=== PATIENT | female | born 1970 | race Caucasian/White ===

== ENCOUNTER 2020-10-14 18:02 | Inpatient (IN) | payer MEDICARE, BC ==
[~2020-10-14] VITALS: Ht 172.7 cm; Wt 85.8 kg
[2020-10-14 19:12] LABS: Basophils # (auto) 0 10 ^3/uL (0-0.2); Basophils % (auto) 0.6 % (0.0-2.0); Eosinophils # (auto) 0.1 10 ^3/uL (0-0.8); Eosinophils % (auto) 1.1 % (0.0-7.0); Hematocrit 36.4 % (36.0-46.0); Hemoglobin 12.4 g/dL (12.2-16.2); Lymphocytes % (auto) 38.2 % (10.0-50.0); Mean Corpuscular Hemoglobin 31.1 pg (28.0-32.0); Mean Corpuscular Volume 91.4 fL (80.0-100.0); Monocytes # (auto) 0.5 10 ^3/uL (0-1.3); Monocytes % (auto) 6.3 % (0.0-12.0); Neutrophils # (auto) 4.2 10 ^3/uL (1.6-8.6); Neutrophils % (auto) 53.8 % (37.0-80.0); Nucleated Red Blood Cells % 0.1 %; Platelet Count (auto) 253 10^3/uL (140-450); Red Blood Cells 3.98 10^6/uL (4.0-5.20); Red Cell Distribution Width 12.8 % (11.8-14.3); White Blood Cell 7.9 10^3/uL (4.4-10.8)
[2020-10-14 19:28] LABS: Alanine Aminotransferase 40 U/L (13-56); Albumin 4.3 g/dL (3.4-5.0); Anion Gap 9 (5-15); Aspartate Aminotransferase 15 U/L (15-37); Blood Urea Nitrogen 18 mg/dL (7-18); Calcium 8.8 mg/dL (8.5-10.1); Carbon Dioxide 28 mmol/L (21-32); Chloride 102 mmol/L (98-107); GFR African American 75 mL/min; GFR Non-African American 62 mL/min; Glucose 240 mg/dL (74-106); Magnesium 2.1 mg/dL (1.6-2.6); Potassium 3.5 mmol/L (3.5-5.1); Sodium 139 mmol/L (136-145)
[2020-10-14 19:34] LABS: Alkaline Phosphatase 92 U/L (45-117); Bilirubin, Total 0.3 mg/dL (0.2-1.0); Total Protein 8.2 g/dL (6.4-8.2)
[2020-10-14 19:43] LABS: INR 1.03 (0.9-1.15); Partial Thromboplastin Time 28.4 sec (23.0-31.2)
[2020-10-14] MEDS ORDERED: FUROSEMIDE 20 MG/2 ML VIAL IV ONE (21:15)
[2020-10-15] MEDS ORDERED: ONDANSETRON HCL 4 MG/2 ML VIAL IV PRN
[2020-10-15] MEDS ORDERED: NITROGLYCERIN 0.4 MG SL TAB SL PRN
[2020-10-15] MEDS ORDERED: DOCUSATE SOD 100 MG CAP PO PRN
[2020-10-15] MEDS ORDERED: DEXTROSE (50%) 50ML SYRG IV PRN
[2020-10-15 02:20] VITALS: BP 121/66
[2020-10-15] MEDS ORDERED: SPIR25TA PO (04:07)
[2020-10-15] MEDS ORDERED: ASPI325T4 PO (04:07)
[2020-10-15] MEDS ORDERED: GLIP10TA9 PO (04:07)
[2020-10-15] MEDS ORDERED: LEVO112T4 PO (04:07)
[2020-10-15] MEDS ORDERED: DIGO0.12 PO (04:07)
[2020-10-15] MEDS ORDERED: IVAB1TAB2 PO (04:07)
[2020-10-15] MEDS ORDERED: ZOLP10TA PO (04:07)
[2020-10-15] MEDS ORDERED: EMPA1TAB PO (04:07)
[2020-10-15] MEDS ORDERED: SACU1TAB7 PO (04:07)
[2020-10-15] MEDS ORDERED: ASPI-543 PO (04:07)
[2020-10-15] MEDS ORDERED: POTA-220 PO (04:07)
[2020-10-15] MEDS ORDERED: METF-371 PO (04:07)
[2020-10-15] MEDS ORDERED: CARV6.2551 PO (04:07)
[2020-10-15] MEDS ORDERED: MAGNTAB16 PO (04:07)
[2020-10-15] MEDS ORDERED: FURO1TAB31 PO (04:07)
[2020-10-15] MEDS ORDERED: PRAV20TA3 PO (04:07)
[2020-10-15 05:00] VITALS: BP 115/68
[2020-10-15 05:19] LABS: Basophils # (auto) 0 10 ^3/uL (0-0.2); Basophils % (auto) 0.5 % (0.0-2.0); Eosinophils # (auto) 0.1 10 ^3/uL (0-0.8); Eosinophils % (auto) 0.8 % (0.0-7.0); Hematocrit 35.8 % (36.0-46.0); Hemoglobin 12.3 g/dL (12.2-16.2); Lymphocytes # (auto) 3.4 10 ^3/uL (0.4-5.4); Lymphocytes % (auto) 40.6 % (10.0-50.0); Mean Corpuscular Hemoglobin 31.1 pg (28.0-32.0); Mean Corpuscular Hgb Conc. 34.4 g/dL (32.0-36.0); Mean Corpuscular Volume 90.5 fL (80.0-100.0); Monocytes # (auto) 0.7 10 ^3/uL (0-1.3); Monocytes % (auto) 8.1 % (0.0-12.0); Neutrophils # (auto) 4.2 10 ^3/uL (1.6-8.6); Platelet Count (auto) 252 10^3/uL (140-450); Red Blood Cells 3.96 10^6/uL (4.0-5.20); Red Cell Distribution Width 12.6 % (11.8-14.3); White Blood Cell 8.4 10^3/uL (4.4-10.8)
[2020-10-15 05:30] LABS: Calcium 8.9 mg/dL (8.5-10.1); Potassium 3.2 mmol/L (3.5-5.1)
[2020-10-15 05:34] LABS: Bilirubin, Total 0.3 mg/dL (0.2-1.0)
[2020-10-15 05:50] LABS: Urine Bacteria NONE SEEN /hpf (None Seen); Urine Blood Negative /uL (Negative); Urine Specific Gravity 1.017 (1.001-1.035); Urine WBC 1 /hpf (0 - 5)
[2020-10-15] MEDS ORDERED: POTASSIUM CHL 20 Meq TABLET PO ONE (06:15)
[2020-10-15] MEDS: SODIUM CHLOR 0.9% PF (SALINE LOCK) 10ML VIAL/SYR IV SCH ×3 (06:57→22:31)
[2020-10-15] MEDS: FUROSEMIDE 20 MG/2 ML VIAL IV SCH ×2 (06:57→17:44)
[2020-10-15] MEDS: LEVOTHYROXINE SODIUM 112 MCG TAB PO SCH (06:57)
[2020-10-15] MEDS: InsuLIN REG 1unit/0.01ml Soln (100units/ml) SC SCH ×3 (06:58→17:00)
[2020-10-15] MEDS: ACCU-CHEK COMFORT CURVE STRIP VI SCH ×4 (06:58→22:32)
[2020-10-15 09:00] VITALS: BP 132/82
[2020-10-15] MEDS ORDERED: PNEUMOCOCCAL VACC POLYS 25 MCG/0.5 ML VIAL IM ONE (10:00)
[2020-10-15] MEDS: FAMOTIDINE 20 MG TAB PO SCH ×2 (10:19→22:32)
[2020-10-15] MEDS: CARVEDILOL 3.125 MG TAB PO SCH ×2 (10:19→22:31)
[2020-10-15] MEDS: MULTIPLE VITAMIN TAB PO SCH (10:20)
[2020-10-15] MEDS: ASPirin 81 mg TAB PO SCH (10:20)
[2020-10-15] MEDS: POTASSIUM CHL 20 Meq TABLET PO SCH (10:20)
[2020-10-15] MEDS: ZINC SULFATE 220mg CAP or TAB PO SCH (10:21)
[2020-10-15] MEDS: ENOXAPARIN SOD 40 MG/0.4 ML SYRINGE SC SCH (10:21)
[2020-10-15] MEDS: ASCORBIC ACID 500 MG TAB PO SCH ×2 (10:21→22:32)
[2020-10-15] MEDS ORDERED: DIGOXIN 0.125 MG TAB PO ONE (12:15)
[2020-10-15] MEDS ORDERED: ZOLPIDEM TARTRATE 5 MG TAB PO PRN ×2 (12:15)
[2020-10-15] MEDS ORDERED: SPIRONOLACTONE 25 MG TAB PO ONE (12:15)
[2020-10-15 13:00] VITALS: BP 116/74
[2020-10-15] MEDS ORDERED: ACETAMINOPHEN 325 MG TAB PO PRN (16:00)
[2020-10-15] MEDS: IBUPROFEN 400 MG TAB PO PRN ×2 (16:25→22:33)
[2020-10-15 17:00] VITALS: BP 132/91
[2020-10-15] MEDS ORDERED: HYDROcodone-ACET 5/325MG TAB PO PRN (17:30)
[2020-10-15] MEDS: metFORMIN HYDROCHLORIDE 850 MG TAB PO SCH (17:45)
[2020-10-15] MEDS: glipiZIDE 5 MG TAB PO SCH (17:45)
[2020-10-15] MEDS: ACETAMINOPHEN 500 MG TAB PO PRN (18:04)
[2020-10-15 21:47] VITALS: BP 125/82
[2020-10-15] MEDS: IVABRADINE 5 MG TAB PO SCH (22:00)
[2020-10-15] MEDS ORDERED: InsuLIN REG 1unit/0.01ml Soln (100units/ml) SC SCH (22:00)
[2020-10-15] MEDS: SACUBITRIL-VALSARTAN 24mg/26mg TAB PO SCH (22:32)
[2020-10-16 04:33] VITALS: BP 102/58
[2020-10-16] MEDS: FUROSEMIDE 20 MG/2 ML VIAL IV SCH (06:49)
[2020-10-16] MEDS: LEVOTHYROXINE SODIUM 112 MCG TAB PO SCH (06:49)
[2020-10-16] MEDS: SODIUM CHLOR 0.9% PF (SALINE LOCK) 10ML VIAL/SYR IV SCH (06:49)
[2020-10-16] MEDS: ACCU-CHEK COMFORT CURVE STRIP VI SCH ×2 (06:49→11:55)
[2020-10-16] MEDS: InsuLIN REG 1unit/0.01ml Soln (100units/ml) SC SCH ×2 (06:50→11:30)
[2020-10-16 06:59] LABS: Basophils # (auto) 0 10 ^3/uL (0-0.2); Basophils % (auto) 0.6 % (0.0-2.0); Eosinophils # (auto) 0.1 10 ^3/uL (0-0.8); Eosinophils % (auto) 1.6 % (0.0-7.0); Hematocrit 38.4 % (36.0-46.0); Hemoglobin 13.3 g/dL (12.2-16.2); Lymphocytes # (auto) 3.5 10 ^3/uL (0.4-5.4); Mean Corpuscular Hemoglobin 31.3 pg (28.0-32.0); Mean Corpuscular Hgb Conc. 34.7 g/dL (32.0-36.0); Mean Corpuscular Volume 90.3 fL (80.0-100.0); Monocytes # (auto) 0.6 10 ^3/uL (0-1.3); Monocytes % (auto) 7.7 % (0.0-12.0); Neutrophils # (auto) 3.5 10 ^3/uL (1.6-8.6); Neutrophils % (auto) 45.1 % (37.0-80.0); Platelet Count (auto) 267 10^3/uL (140-450); Red Blood Cells 4.25 10^6/uL (4.0-5.20); Red Cell Distribution Width 12.2 % (11.8-14.3); White Blood Cell 7.7 10^3/uL (4.4-10.8)
[2020-10-16 07:14] LABS: Chloride 104 mmol/L (98-107); Potassium 3.6 mmol/L (3.5-5.1); Sodium 140 mmol/L (136-145)
[2020-10-16 07:28] LABS: Anion Gap 8 (5-15); BUN/Creatinine Ratio 32.1; Blood Urea Nitrogen 27 mg/dL (7-18); Calcium 8.9 mg/dL (8.5-10.1); Carbon Dioxide 28 mmol/L (21-32); GFR African American 92 mL/min; GFR Non-African American 76 mL/min; Glucose 82 mg/dL (74-106)
[2020-10-16] MEDS: glipiZIDE 5 MG TAB PO SCH (07:38)
[2020-10-16] MEDS: metFORMIN HYDROCHLORIDE 850 MG TAB PO SCH (07:38)
[2020-10-16 08:00] VITALS: BP 111/43
[2020-10-16] MEDS: ASPirin 81 mg TAB PO SCH (09:27)
[2020-10-16] MEDS: CARVEDILOL 3.125 MG TAB PO SCH (09:31)
[2020-10-16] MEDS: ZINC SULFATE 220mg CAP or TAB PO SCH (09:31)
[2020-10-16] MEDS: IVABRADINE 5 MG TAB PO SCH (09:32)
[2020-10-16] MEDS: MULTIPLE VITAMIN TAB PO SCH (09:32)
[2020-10-16] MEDS: ASCORBIC ACID 500 MG TAB PO SCH (09:33)
[2020-10-16] MEDS: SACUBITRIL-VALSARTAN 24mg/26mg TAB PO SCH (09:33)
[2020-10-16] MEDS: FAMOTIDINE 20 MG TAB PO SCH (09:33)
[2020-10-16] MEDS: POTASSIUM CHL 20 Meq TABLET PO SCH (09:33)
[2020-10-16] MEDS: ENOXAPARIN SOD 40 MG/0.4 ML SYRINGE SC SCH (09:33)
[2020-10-16] MEDS: ACETAMINOPHEN 500 MG TAB PO PRN (09:34)
[2020-10-16] MEDS ORDERED: SPIRONOLACTONE 25 MG TAB PO SCH (10:00)
[2020-10-16 12:00] VITALS: BP 105/70
[2020-10-16] MEDS ORDERED: PNEUMOCOCCAL VACC POLYS 25 MCG/0.5 ML VIAL IM ONE (12:00)
[2020-10-16 12:12] VITALS: BP 105/70
== END 2020-10-16 13:22 | disposition home or self-care (01) | DRG 308 ==
LOC: ER 18:02 → EDBD 18:02 → TELE 10-15 00:12 → TELE-WESTW 10-15 02:09
PROVIDERS: ADMIT Nurse Practitioner Family; ATTEND Nurse Practitioner Family
PROC: 4B02XSZ Measurement of Cardiac Pacemaker, External Approach (ICD-10-PCS; principal; 2020-10-15)
DX: I49.01 Ventricular fibrillation (principal); N17.0 Acute kidney failure with tubular necrosis; I50.42 Chronic combined systolic (congestive) and diastolic (congestive) heart failure; I49.3 Ventricular premature depolarization; Z88.8 Allergy status to other drugs, medicaments and biological substances; Z20.822 Contact with and (suspected) exposure to COVID-19; E11.22 Type 2 diabetes mellitus with diabetic chronic kidney disease; E11.65 Type 2 diabetes mellitus with hyperglycemia; E87.6 Hypokalemia; N18.9 Chronic kidney disease, unspecified; Z76.82 Awaiting organ transplant status; Z95.0 Presence of cardiac pacemaker; Z90.49 Acquired absence of other specified parts of digestive tract
CPT/HCPCS: 36415; 71045; 80048; 80053; 81001; 82962; 83036; 83735; 83880; 84443; 84484; 85025; 85610; 85730; 86850; 86900; 86901; 87426; 93306; 96374; G0378; J1815

== ENCOUNTER 2023-03-20 16:28 | Inpatient (IN) | payer MEDICARE, BC ==
[~2023-03-20] VITALS: Ht 172.7 cm; Wt 82.4 kg
[~2023-03-20 16:28] MED LIST: ASPI-543 PO; CARV6.2551 PO; DIGO0.12 PO; EMPA1TAB PO; FURO1TAB31 PO; GLIP10TA9 PO; IVAB1TAB2 PO; LEVO112T4 PO; MAGNTAB16 PO; METF-371 PO; POTA-220 PO; PRAV20TA3 PO; SACU1TAB7 PO; SPIR25TA PO; ZOLP10TA PO
[2023-03-20 17:28] LABS: Basophils # (auto) 0 10 ^3/uL (0-0.2); Basophils % (auto) 0.3 % (0.0-2.0); Eosinophils # (auto) 0 10 ^3/uL (0-0.8); Hematocrit 36.4 % (36.0-46.0); Hemoglobin 12.1 g/dL (12.2-16.2); Lymphocytes # (auto) 1.2 10 ^3/uL (0.4-5.4); Lymphocytes % (auto) 8.8 % (10.0-50.0); Mean Corpuscular Hemoglobin 29.8 pg (28.0-32.0); Mean Corpuscular Hgb Conc. 33.3 g/dL (32.0-36.0); Mean Corpuscular Volume 89.8 fL (80.0-100.0); Monocytes % (auto) 7.7 % (0.0-12.0); Neutrophils % (auto) 83.2 % (37.0-80.0); Red Blood Cells 4.06 10^6/uL (4.0-5.20); Red Cell Distribution Width 13.8 % (11.8-14.3); White Blood Cell 13.3 10^3/uL (4.4-10.8)
[2023-03-20 17:32] VITALS: O2SAT 97
[2023-03-20 17:47] LABS: Albumin 4.3 g/dL (3.4-5.0); Calcium 9.1 mg/dL (8.5-10.1); Magnesium 1.7 mg/dL (1.6-2.6)
[2023-03-20 17:52] LABS: Bilirubin, Total 0.5 mg/dL (0.2-1.0); Total Protein 8.4 g/dL (6.4-8.2)
[2023-03-20 17:57] LABS: BUN/Creatinine Ratio 25.2 (10.0-20.0)
[2023-03-20] MEDS ORDERED: ACETAMINOPHEN 325 MG TAB PO ONE (18:45)
[2023-03-20 19:02] LABS: Urine Bacteria FEW /hpf (None Seen); Urine Blood Negative /uL (Negative); Urine Clarity Clear (Clear); Urine Color Colorless (Yellow); Urine Hyaline Cast FEW /lpf (0 - 2); Urine Protein, UAD Negative (Negative); Urine Specific Gravity 1.006 (1.001-1.035); Urine Urobilinogen Normal (Negative); Urine WBC <1 /hpf (0 - 5)
[2023-03-20] MEDS ORDERED: cefTRIAXone 1GM/50ML D5W 50 ML IV ONE (19:15)
[2023-03-20 19:35] VITALS: PULSE 68; RESP 14; O2SAT 94
[2023-03-20] MEDS ORDERED: MORPHINE SULFATE INJ 2 MG/ml SYRG IV PRN (20:45)
[2023-03-20] MEDS ORDERED: MORPHINE SULFATE 4 MG/ML SYR/VIAL IV ONE (20:45)
[2023-03-20] MEDS ORDERED: ONDANSETRON HCL 4 MG/2 ML VIAL IV ONE (20:45)
[2023-03-20] MEDS ORDERED: NITROGLYCERIN 0.4 MG SL TAB SL PRN (20:45)
[2023-03-20] MEDS ORDERED: ALBUTEROL SULF 2.5 MG/0.5ML(0.5%) NEB SOLN NEB PRN (21:00)
[2023-03-20] MEDS ORDERED: DEXTROSE (50%) 50ML SYRG IV PRN (21:00)
[2023-03-20] MEDS: CARVEDILOL 3.125 MG TAB PO SCH (21:49)
[2023-03-20] MEDS: ATORVASTATIN 20 MG TAB PO SCH (21:49)
[2023-03-20] MEDS: ACCU-CHEK COMFORT CURVE STRIP VI SCH (21:49)
[2023-03-20] MEDS: InsuLIN REG 1unit/0.01ml Soln (100units/ml) SC SCH (21:50)
[2023-03-20] MEDS: SACUBITRIL-VALSARTAN 24mg/26mg TAB PO SCH (21:50)
[2023-03-20 22:15] LABS: BUN/Creatinine Ratio 24.3 (10.0-20.0); Calcium 8.4 mg/dL (8.5-10.1); Potassium 3.5 mmol/L (3.5-5.1)
[2023-03-20 23:01] VITALS: BP 103/144; PULSE 65; RESP 20; O2SAT 94
[2023-03-21] VITALS (10 sets, daily range): BP systolic 92–104; BP diastolic 44–50; PULSE 59–69; RESP 15–20; TEMP 97.9–98.8; O2SAT 90–98
[2023-03-21] MEDS: ACETAMINOPHEN 325 MG TAB PO PRN ×4 (01:40→21:00)
[2023-03-21] MEDS: TEMAZEPAM 15 MG CAP PO PRN ×2 (03:12→22:10)
[2023-03-21 04:58] LABS: Basophils # (auto) 0 10 ^3/uL (0-0.2); Basophils % (auto) 0.2 % (0.0-2.0); Eosinophils # (auto) 0 10 ^3/uL (0-0.8); Hematocrit 32.3 % (36.0-46.0); Hemoglobin 10.8 g/dL (12.2-16.2); Lymphocytes # (auto) 2.4 10 ^3/uL (0.4-5.4); Lymphocytes % (auto) 15.7 % (10.0-50.0); Mean Corpuscular Hemoglobin 29.7 pg (28.0-32.0); Mean Corpuscular Hgb Conc. 33.4 g/dL (32.0-36.0); Mean Corpuscular Volume 89.1 fL (80.0-100.0); Monocytes # (auto) 1.3 10 ^3/uL (0-1.3); Monocytes % (auto) 8.5 % (0.0-12.0); Neutrophils # (auto) 11.4 10 ^3/uL (1.6-8.6); Neutrophils % (auto) 75.6 % (37.0-80.0); Red Blood Cells 3.62 10^6/uL (4.0-5.20); Red Cell Distribution Width 13.9 % (11.8-14.3); White Blood Cell 15.1 10^3/uL (4.4-10.8)
[2023-03-21] MEDS ORDERED: FUROSEMIDE 40 MG/4 ML VIAL IV SCH (06:00)
[2023-03-21] MEDS: ACCU-CHEK COMFORT CURVE STRIP VI SCH ×4 (06:22→22:00)
[2023-03-21] MEDS: InsuLIN REG 1unit/0.01ml Soln (100units/ml) SC SCH ×4 (06:22→21:39)
[2023-03-21] MEDS: LEVOTHYROXINE SODIUM 50 MCG TAB PO SCH (06:42)
[2023-03-21] MEDS: ENOXAPARIN SOD 40 MG/0.4 ML SYRINGE SC SCH (09:48)
[2023-03-21] MEDS: PANTOPRAZOLE 40 MG TAB PO SCH (09:48)
[2023-03-21] MEDS ORDERED: AZITHROMYCIN 500MG/ 250ML 250 ML IV SCH (10:00)
[2023-03-21] MEDS: SACUBITRIL-VALSARTAN 24mg/26mg TAB PO SCH ×2 (10:00→21:35)
[2023-03-21] MEDS: DIGOXIN 0.125 MG TAB PO SCH (10:00)
[2023-03-21] MEDS: CARVEDILOL 3.125 MG TAB PO SCH ×2 (10:00→21:35)
[2023-03-21] MEDS: AMIODARONE HCL 200 MG TAB PO SCH (10:04)
[2023-03-21] MEDS: SPIRONOLACTONE 25 MG TAB PO SCH (10:10)
[2023-03-21] MEDS ORDERED: MORPHINE SULFATE 4 MG/ML SYR/VIAL IV PRN (10:15)
[2023-03-21] MEDS ORDERED: POTASSIUM EFFERVESENT TAB 25 MEQ PO ONE (10:15)
[2023-03-21 11:04] LABS: Albumin 3.5 g/dL (3.4-5.0); Calcium 8.4 mg/dL (8.5-10.1); Magnesium 2.2 mg/dL (1.6-2.6); Potassium 3.3 mmol/L (3.5-5.1)
[2023-03-21 11:09] LABS: BUN/Creatinine Ratio 26.9 (10.0-20.0); Bilirubin, Total 0.4 mg/dL (0.2-1.0); Total Protein 7.7 g/dL (6.4-8.2)
[2023-03-21 11:57] LABS: Hepatitis B Surface Antigen Negative (Negative); Hepatitis C Antibody Negative (Negative)
[2023-03-21] MEDS ORDERED: cefTRIAXone 1GM/50ML D5W 50 ML IV ONE (12:45)
[2023-03-21] MEDS: BUDESONIDE (INHALATION) 0.5 MG/2 ML NEB NEB SCH ×2 (14:36→19:42)
[2023-03-21] MEDS ORDERED: ACETAMINOPHEN 500 MG TAB PO ONE (16:15)
[2023-03-21] MEDS: guaiFENesin-DM 100/10mg/5ml SYR PO PRN (16:35)
[2023-03-21 17:59] LABS: COVID19 ANTIGEN SOFIA FIA NEGATIVE (NEGATIVE); Rapid Influenza A Negative (Negative); Rapid Influenza B Negative (Negative)
[2023-03-21] MEDS: ALBUTEROL SULF 2.5 MG/0.5ML(0.5%) NEB SOLN NEB SCH (19:42)
[2023-03-21] MEDS: IPRATROPIUM BROM 0.5 MG/2.5ML INH SOL NEB SCH (19:42)
[2023-03-21] MEDS: DOXYCYCLINE 100 MG TAB/CAP PO SCH (21:35)
[2023-03-21] MEDS: ATORVASTATIN 20 MG TAB PO SCH (21:36)
[2023-03-22] VITALS (8 sets, daily range): BP systolic 103–123; BP diastolic 49–78; PULSE 65–80; RESP 16–19; TEMP 36.5; O2SAT 92–94
[2023-03-22] MEDS: MORPHINE SULFATE INJ 2 MG/ml SYRG IV PRN ×2 (00:35→05:09)
[2023-03-22] MEDS: ACETAMINOPHEN 325 MG TAB PO PRN (04:31)
[2023-03-22 05:50] LABS: Basophils # (auto) 0 10 ^3/uL (0-0.2); Basophils % (auto) 0.2 % (0.0-2.0); Eosinophils # (auto) 0 10 ^3/uL (0-0.8); Eosinophils % (auto) 0.4 % (0.0-7.0); Hematocrit 35.4 % (36.0-46.0); Lymphocytes # (auto) 3.1 10 ^3/uL (0.4-5.4); Lymphocytes % (auto) 25.4 % (10.0-50.0); Mean Corpuscular Hemoglobin 30.4 pg (28.0-32.0); Mean Corpuscular Hgb Conc. 33.9 g/dL (32.0-36.0); Mean Corpuscular Volume 89.5 fL (80.0-100.0); Monocytes # (auto) 0.9 10 ^3/uL (0-1.3); Monocytes % (auto) 7.4 % (0.0-12.0); Neutrophils % (auto) 66.6 % (37.0-80.0); Red Blood Cells 3.95 10^6/uL (4.0-5.20); Red Cell Distribution Width 13.8 % (11.8-14.3); White Blood Cell 12.1 10^3/uL (4.4-10.8)
[2023-03-22 06:13] LABS: Potassium 3.3 mmol/L (3.5-5.1)
[2023-03-22 06:19] LABS: Albumin 3.8 g/dL (3.4-5.0); BUN/Creatinine Ratio 23.7 (10.0-20.0); Calcium 8.6 mg/dL (8.5-10.1); Magnesium 2.3 mg/dL (1.6-2.6)
[2023-03-22 06:21] LABS: Bilirubin, Total 0.3 mg/dL (0.2-1.0); Total Protein 8.6 g/dL (6.4-8.2)
[2023-03-22] MEDS: ALBUTEROL SULF 2.5 MG/0.5ML(0.5%) NEB SOLN NEB SCH ×2 (06:33→12:00)
[2023-03-22] MEDS: IPRATROPIUM BROM 0.5 MG/2.5ML INH SOL NEB SCH ×2 (06:33→12:00)
[2023-03-22] MEDS: FUROSEMIDE 40 MG/4 ML VIAL IV SCH ×2 (06:42→07:29)
[2023-03-22] MEDS: InsuLIN REG 1unit/0.01ml Soln (100units/ml) SC SCH ×5 (06:43→21:43)
[2023-03-22] MEDS: ACCU-CHEK COMFORT CURVE STRIP VI SCH ×4 (07:00→22:00)
[2023-03-22] MEDS: LEVOTHYROXINE SODIUM 50 MCG TAB PO SCH (07:28)
[2023-03-22] MEDS ORDERED: POTASSIUM EFFERVESENT TAB 25 MEQ PO ONE ×2 (07:30)
[2023-03-22] MEDS ORDERED: LACTULOSE 20Gm/30ML SOLN PO ONE (08:30)
[2023-03-22] MEDS: cefTRIAXone 1GM/50ML D5W 50 ML IV SCH (09:24)
[2023-03-22] MEDS: DIGOXIN 0.125 MG TAB PO SCH (09:25)
[2023-03-22] MEDS: ENOXAPARIN SOD 40 MG/0.4 ML SYRINGE SC SCH (09:25)
[2023-03-22] MEDS: SPIRONOLACTONE 25 MG TAB PO SCH (09:26)
[2023-03-22] MEDS: HYDROcodone-ACET 5/325MG TAB PO PRN ×2 (09:26→18:33)
[2023-03-22] MEDS: PANTOPRAZOLE 40 MG TAB PO SCH (09:26)
[2023-03-22] MEDS: DOXYCYCLINE 100 MG TAB/CAP PO SCH ×2 (09:26→21:48)
[2023-03-22] MEDS: CARVEDILOL 3.125 MG TAB PO SCH ×2 (09:27→21:53)
[2023-03-22] MEDS: AMIODARONE HCL 200 MG TAB PO SCH (09:27)
[2023-03-22] MEDS: SACUBITRIL-VALSARTAN 24mg/26mg TAB PO SCH ×2 (09:28→21:54)
[2023-03-22] MEDS: BUDESONIDE (INHALATION) 0.5 MG/2 ML NEB NEB SCH (10:00)
[2023-03-22] MEDS: ONDANSETRON HCL 4 MG/2 ML VIAL IV PRN (12:22)
[2023-03-22] MEDS ORDERED: KETOROLAC TROMETH 30 MG/ML 1ML VIAL IV ONE (13:15)
[2023-03-22] MEDS ORDERED: POTASSIUM CHL 20MEQ/100ML 100 ML IV ONE (15:00)
[2023-03-22] MEDS: ATORVASTATIN 20 MG TAB PO SCH (21:48)
[2023-03-22] MEDS: TEMAZEPAM 15 MG CAP PO PRN (21:48)
[2023-03-22] MEDS: IVABRADINE 5 MG TAB PO SCH (21:54)
[2023-03-23] VITALS (7 sets, daily range): BP systolic 89–132; BP diastolic 50–66; PULSE 60–80; RESP 17–18; TEMP 36.9; O2SAT 93–96
[2023-03-23 05:36] LABS: Basophils # (auto) 0 10 ^3/uL (0-0.2); Basophils % (auto) 0.6 % (0.0-2.0); Eosinophils # (auto) 0.1 10 ^3/uL (0-0.8); Eosinophils % (auto) 1.8 % (0.0-7.0); Hematocrit 33.5 % (36.0-46.0); Hemoglobin 11.3 g/dL (12.2-16.2); Lymphocytes # (auto) 1.5 10 ^3/uL (0.4-5.4); Lymphocytes % (auto) 23.8 % (10.0-50.0); Mean Corpuscular Hemoglobin 30.2 pg (28.0-32.0); Mean Corpuscular Hgb Conc. 33.9 g/dL (32.0-36.0); Mean Corpuscular Volume 89.1 fL (80.0-100.0); Monocytes # (auto) 0.5 10 ^3/uL (0-1.3); Monocytes % (auto) 7.1 % (0.0-12.0); Neutrophils # (auto) 4.2 10 ^3/uL (1.6-8.6); Neutrophils % (auto) 66.7 % (37.0-80.0); Nucleated Red Blood Cells % 0.1 %; Red Blood Cells 3.76 10^6/uL (4.0-5.20); Red Cell Distribution Width 13.4 % (11.8-14.3); White Blood Cell 6.4 10^3/uL (4.4-10.8)
[2023-03-23 06:02] LABS: Albumin 3.3 g/dL (3.4-5.0); Magnesium 2.4 mg/dL (1.6-2.6); Potassium 3.4 mmol/L (3.5-5.1)
[2023-03-23 06:06] LABS: BUN/Creatinine Ratio 23.5 (10.0-20.0); Bilirubin, Total 0.2 mg/dL (0.2-1.0); Total Protein 7.5 g/dL (6.4-8.2)
[2023-03-23] MEDS: InsuLIN REG 1unit/0.01ml Soln (100units/ml) SC SCH ×2 (06:22→11:43)
[2023-03-23] MEDS: ACCU-CHEK COMFORT CURVE STRIP VI SCH ×2 (06:46→11:40)
[2023-03-23] MEDS: LEVOTHYROXINE SODIUM 50 MCG TAB PO SCH (06:46)
[2023-03-23] MEDS: ACETAMINOPHEN 325 MG TAB PO PRN (06:48)
[2023-03-23] MEDS ORDERED: FUROSEMIDE 20 MG/2 ML VIAL IV SCH (07:00)
[2023-03-23] MEDS ORDERED: EMPAGLIFLOZIN 10 MG TAB PO SCH (07:00)
[2023-03-23] MEDS ORDERED: POTASSIUM EFFERVESENT TAB 25 MEQ PO ONE (07:15)
[2023-03-23] MEDS: cefTRIAXone 1GM/50ML D5W 50 ML IV SCH (08:31)
[2023-03-23] MEDS: AMIODARONE HCL 200 MG TAB PO SCH (09:59)
[2023-03-23] MEDS: PANTOPRAZOLE 40 MG TAB PO SCH (09:59)
[2023-03-23] MEDS: SACUBITRIL-VALSARTAN 24mg/26mg TAB PO SCH (09:59)
[2023-03-23] MEDS: SPIRONOLACTONE 25 MG TAB PO SCH (09:59)
[2023-03-23] MEDS: DIGOXIN 0.125 MG TAB PO SCH (09:59)
[2023-03-23] MEDS: DOXYCYCLINE 100 MG TAB/CAP PO SCH (09:59)
[2023-03-23] MEDS: IVABRADINE 5 MG TAB PO SCH (10:00)
[2023-03-23] MEDS: CARVEDILOL 3.125 MG TAB PO SCH (10:00)
[2023-03-23] MEDS: ENOXAPARIN SOD 40 MG/0.4 ML SYRINGE SC SCH (10:00)
[2023-03-23] MEDS: guaiFENesin-DM 100/10mg/5ml SYR PO PRN (10:03)
[2023-03-23] MEDS ORDERED: KETOROLAC TROMETH 30 MG/ML 1ML VIAL IV ONE (11:30)
[2023-03-23] MEDS: ONDANSETRON HCL 4 MG/2 ML VIAL IV PRN (11:44)
[2023-03-23] MEDS ORDERED: LEVO500T91 PO (15:17)
[2023-03-23] MEDS ORDERED: ALBU108A5 IN (15:57)
[2023-03-24] MEDS ORDERED: FUROSEMIDE 20 MG TAB PO SCH (07:00)
== END 2023-03-23 16:00 | disposition home or self-care (01) | DRG 871 ==
LOC: EDBD 16:28 → ER 16:28 → TELE 20:38 → TELE-CENTR 23:39
PROVIDERS: ADMIT Internal Medicine; ATTEND Student in an Organized Health Care Education/Training Program
DX: A41.9 Sepsis, unspecified organism (principal); I50.23 Acute on chronic systolic (congestive) heart failure; J96.20 Acute and chronic respiratory failure, unspecified whether with hypoxia or hypercapnia; N17.0 Acute kidney failure with tubular necrosis; J15.6 Pneumonia due to other Gram-negative bacteria; J15.9 Unspecified bacterial pneumonia; I13.0 Hypertensive heart and chronic kidney disease with heart failure and stage 1 through stage 4 chronic kidney disease, or unspecified chronic kidney disease; I42.9 Cardiomyopathy, unspecified; E07.9 Disorder of thyroid, unspecified; E87.6 Hypokalemia; D64.9 Anemia, unspecified; E03.9 Hypothyroidism, unspecified; K59.00 Constipation, unspecified; E11.22 Type 2 diabetes mellitus with diabetic chronic kidney disease; R33.9 Retention of urine, unspecified; Z20.822 Contact with and (suspected) exposure to COVID-19; N18.9 Chronic kidney disease, unspecified; E66.9 Obesity, unspecified; I50.82 Biventricular heart failure; Z82.49 Family history of ischemic heart disease and other diseases of the circulatory system; Z88.8 Allergy status to other drugs, medicaments and biological substances; Z88.5 Allergy status to narcotic agent; Z90.49 Acquired absence of other specified parts of digestive tract; Z95.810 Presence of automatic (implantable) cardiac defibrillator; Z76.82 Awaiting organ transplant status; Z68.28 Body mass index [BMI] 28.0-28.9, adult
CPT/HCPCS: 36415; 71045; 71046; 71250; 80048; 80053; 80061; 80162; 81001; 82962; 83036; 83605; 83735; 83880; 84132; 84443; 84484; 85025; 86803; 87040; 87340; 87426; 87804; 93005; 93306; 94640; 96365; 96375; G0378; J0696; J1815; J1885; J2405

== ENCOUNTER 2023-06-10 17:13 | Inpatient (IN) | payer MEDICARE, BC ==
[~2023-06-10] VITALS: Ht 172.7 cm; Wt 83.3 kg
[~2023-06-10 17:13] MED LIST changes: +ALBU108A5 IN; +LEVO500T91 PO
[2023-06-10 17:40] LABS: Basophils # (auto) 0.1 10 ^3/uL (0-0.2); Basophils % (auto) 0.8 % (0.0-2.0); Eosinophils # (auto) 0.1 10 ^3/uL (0-0.8); Eosinophils % (auto) 1.9 % (0.0-7.0); Hemoglobin 12.8 g/dL (12.2-16.2); Lymphocytes # (auto) 1.4 10 ^3/uL (0.4-5.4); Lymphocytes % (auto) 19.7 % (10.0-50.0); Mean Corpuscular Hemoglobin 30.4 pg (28.0-32.0); Mean Corpuscular Hgb Conc. 33.7 g/dL (32.0-36.0); Mean Corpuscular Volume 90.1 fL (80.0-100.0); Monocytes # (auto) 0.9 10 ^3/uL (0-1.3); Monocytes % (auto) 12.2 % (0.0-12.0); Neutrophils # (auto) 4.8 10 ^3/uL (1.6-8.6); Neutrophils % (auto) 65.4 % (37.0-80.0); Nucleated Red Blood Cells % 0.1 %; Red Blood Cells 4.22 10^6/uL (4.0-5.20); Red Cell Distribution Width 13.4 % (11.8-14.3); White Blood Cell 7.3 10^3/uL (4.4-10.8)
[2023-06-10 17:55] LABS: Alanine Aminotransferase 25 U/L (7-40); Albumin 4.8 g/dL (3.2-4.8); Alkaline Phosphatase 76 U/L (46-116); Anion Gap 8 (5-15); Aspartate Aminotransferase 21 U/L (13-40); BUN/Creatinine Ratio 18.8 (10.0-20.0); Bilirubin, Total 0.5 mg/dL (0.2-1.0); Blood Urea Nitrogen 26 mg/dL (9-23); Calcium 9.5 mg/dL (8.5-10.1); Carbon Dioxide 34 mmol/L (20-30); Chloride 97 mmol/L (98-107); Glucose 147 mg/dL (74-106); Potassium 3.4 mmol/L (3.5-5.1); Sodium 139 mmol/L (136-145); Total Protein 7.3 g/dL (5.7-8.2)
[2023-06-10] MEDS ORDERED: NITROGLYCERIN 2% OINT 1GM PKG TD STA (20:42)
[2023-06-10] MEDS ORDERED: ONDANSETRON HCL 4 MG/2 ML VIAL IV ONE (20:45)
[2023-06-10] MEDS ORDERED: MORPHINE SULFATE 4 MG/ML SYR/VIAL IV ONE (20:45)
[2023-06-10] MEDS ORDERED: PANTOPRAZOLE 40 MG/10 ML VIAL INJ IV ONE (20:45)
[2023-06-10] MEDS ORDERED: FUROSEMIDE 40 MG TAB PO ONE (20:45)
[2023-06-10] MEDS ORDERED: ASPirin 81 mg TAB PO ONE (20:45)
[2023-06-10] MEDS ORDERED: ONDANSETRON HCL 4 MG/2 ML VIAL IV PRN (21:15)
[2023-06-10] MEDS ORDERED: POTASSIUM CHL 20 Meq TABLET PO ONE (21:15)
[2023-06-10] MEDS ORDERED: ALBUTEROL SULF 2.5 MG/0.5ML(0.5%) NEB SOLN NEB PRN (21:15)
[2023-06-10] MEDS ORDERED: NITROGLYCERIN 0.4 MG SL TAB SL PRN (21:15)
[2023-06-10] MEDS ORDERED: MORPHINE SULFATE INJ 2 MG/ml SYRG IV PRN (21:15)
[2023-06-10] MEDS ORDERED: ACETAMINOPHEN 325 MG TAB PO PRN (21:15)
[2023-06-10] MEDS ORDERED: DEXTROSE (50%) 50ML SYRG IV PRN (21:15)
[2023-06-10 21:30] VITALS: BP 123/69; PULSE 61; RESP 20; TEMP 98.7; O2SAT 97
[2023-06-10 22:34] LABS: INR 1.12 (0.9-1.15); Partial Thromboplastin Time 28.1 SEC (24.5-34.5); Prothrombin Time 11.7 sec (9.3-11.8)
[2023-06-10] MEDS: TICAGRELOR 90 MG TAB PO SCH (23:06)
[2023-06-10] MEDS: ATORVASTATIN 20 MG TAB PO SCH (23:06)
[2023-06-10] MEDS: CARVEDILOL 3.125 MG TAB PO SCH (23:06)
[2023-06-10] MEDS: SACUBITRIL-VALSARTAN 24mg/26mg TAB PO SCH (23:06)
[2023-06-10] MEDS: ACCU-CHEK COMFORT CURVE STRIP VI SCH (23:16)
[2023-06-10] MEDS: InsuLIN REG 1unit/0.01ml Soln (100units/ml) SC SCH (23:24)
[2023-06-11 01:18] VITALS: PULSE 62; RESP 15; O2SAT 98
[2023-06-11] MEDS: TEMAZEPAM 15 MG CAP PO PRN (03:58)
[2023-06-11] MEDS: FUROSEMIDE 40 MG TAB PO SCH ×2 (06:14→18:22)
[2023-06-11] MEDS ORDERED: ENOXAPARIN SOD 100 MG/1 ML SYRINGE SC ONE (06:15)
[2023-06-11 06:49] VITALS: PULSE 62; RESP 15; O2SAT 98
[2023-06-11] MEDS: LEVOTHYROXINE SODIUM 50 MCG TAB PO SCH (07:00)
[2023-06-11] MEDS: ACCU-CHEK COMFORT CURVE STRIP VI SCH ×4 (07:00→22:00)
[2023-06-11] MEDS: InsuLIN REG 1unit/0.01ml Soln (100units/ml) SC SCH ×4 (07:00→22:41)
[2023-06-11 07:03] LABS: Basophils # (auto) 0 10 ^3/uL (0-0.2); Basophils % (auto) 0.6 % (0.0-2.0); Eosinophils # (auto) 0.1 10 ^3/uL (0-0.8); Eosinophils % (auto) 2.1 % (0.0-7.0); Hematocrit 35.3 % (36.0-46.0); Hemoglobin 11.8 g/dL (12.2-16.2); Lymphocytes # (auto) 1.4 10 ^3/uL (0.4-5.4); Lymphocytes % (auto) 22.9 % (10.0-50.0); Mean Corpuscular Hemoglobin 30.5 pg (28.0-32.0); Mean Corpuscular Hgb Conc. 33.6 g/dL (32.0-36.0); Mean Corpuscular Volume 90.9 fL (80.0-100.0); Monocytes # (auto) 0.7 10 ^3/uL (0-1.3); Monocytes % (auto) 11.7 % (0.0-12.0); Neutrophils # (auto) 3.8 10 ^3/uL (1.6-8.6); Neutrophils % (auto) 62.7 % (37.0-80.0); Red Blood Cells 3.88 10^6/uL (4.0-5.20); Red Cell Distribution Width 13.3 % (11.8-14.3); White Blood Cell 6.1 10^3/uL (4.4-10.8)
[2023-06-11 07:09] LABS: Alanine Aminotransferase 16 U/L (7-40); Albumin 4.6 g/dL (3.2-4.8); Alkaline Phosphatase 68 U/L (46-116); Anion Gap 8 (5-15); Aspartate Aminotransferase 16 U/L (13-40); BUN/Creatinine Ratio 15.3 (10.0-20.0); Bilirubin, Total 0.4 mg/dL (0.2-1.0); Blood Urea Nitrogen 17 mg/dL (9-23); Calcium 9.4 mg/dL (8.7-10.4); Carbon Dioxide 32 mmol/L (20-30); Chloride 98 mmol/L (98-107); Glucose 149 mg/dL (74-106); Potassium 3.2 mmol/L (3.5-5.1); Sodium 138 mmol/L (136-145); Total Protein 7.3 g/dL (5.7-8.2)
[2023-06-11 07:51] VITALS: O2SAT 95
[2023-06-11] MEDS: CARVEDILOL 3.125 MG TAB PO SCH ×2 (08:58→22:00)
[2023-06-11] MEDS: TICAGRELOR 90 MG TAB PO SCH (08:58)
[2023-06-11] MEDS: DIGOXIN 0.125 MG TAB PO SCH (08:59)
[2023-06-11] MEDS: ENOXAPARIN SOD 30 MG/0.3 ML SYRINGE SC SCH (09:00)
[2023-06-11] MEDS: SACUBITRIL-VALSARTAN 24mg/26mg TAB PO SCH ×2 (09:00→22:48)
[2023-06-11] MEDS ORDERED: ASPirin 81 mg TAB PO SCH (10:00)
[2023-06-11] MEDS ORDERED: AMIODARONE HCL 200 MG TAB PO SCH (11:15)
[2023-06-11] MEDS: AMIODARONE HCL 200 MG TAB PO SCH (12:45)
[2023-06-11] MEDS ORDERED: OPTISON 3ml Vial for INJ IV ONE (13:20)
[2023-06-11] MEDS ORDERED: SACU1TAB PO (15:10)
[2023-06-11] MEDS ORDERED: AMIO200T33 PO (15:17)
[2023-06-11] MEDS ORDERED: ATO40T PO (15:18)
[2023-06-11 18:45] VITALS: O2SAT 94
[2023-06-11 19:35] VITALS: PULSE 70; RESP 15; O2SAT 91; O2SAT 96
[2023-06-11] MEDS: HYDROcodone-ACET 5/325MG TAB PO PRN (19:42)
[2023-06-11] MEDS: ATORVASTATIN 20 MG TAB PO SCH (22:47)
[2023-06-12] VITALS (9 sets, daily range): BP systolic 107–150; BP diastolic 50–81; PULSE 50–83; RESP 16–20; TEMP 97.3–98; O2SAT 92–99
[2023-06-12] MEDS: HYDROcodone-ACET 5/325MG TAB PO PRN (01:13)
[2023-06-12] MEDS ORDERED: TICA90TA PO (02:17)
[2023-06-12] MEDS: LEVOTHYROXINE SODIUM 50 MCG TAB PO SCH (06:01)
[2023-06-12] MEDS: FUROSEMIDE 40 MG TAB PO SCH ×2 (06:01→17:23)
[2023-06-12] MEDS: ACCU-CHEK COMFORT CURVE STRIP VI SCH ×4 (06:16→21:35)
[2023-06-12] MEDS: InsuLIN REG 1unit/0.01ml Soln (100units/ml) SC SCH ×4 (06:16→21:39)
[2023-06-12] MEDS ORDERED: CLOPIDOGREL 300 MG TAB PO ONE (07:30)
[2023-06-12] MEDS: ENOXAPARIN SOD 30 MG/0.3 ML SYRINGE SC SCH (09:52)
[2023-06-12] MEDS: ASPirin 81 mg TAB PO SCH (09:53)
[2023-06-12] MEDS: DIGOXIN 0.125 MG TAB PO SCH ×2 (10:00→12:51)
[2023-06-12] MEDS ORDERED: CLOPIDOGREL BISULFATE 75 MG TAB PO SCH (10:00)
[2023-06-12] MEDS: CARVEDILOL 3.125 MG TAB PO SCH ×3 (10:00→21:35)
[2023-06-12] MEDS: AMIODARONE HCL 200 MG TAB PO SCH ×2 (10:00→12:43)
[2023-06-12] MEDS: SACUBITRIL-VALSARTAN 24mg/26mg TAB PO SCH ×3 (10:00→21:34)
[2023-06-12] MEDS ORDERED: POTASSIUM CHL 20 Meq TABLET PO ONE (11:15)
[2023-06-12] MEDS: ATORVASTATIN 20 MG TAB PO SCH (21:34)
[2023-06-12] MEDS: TEMAZEPAM 15 MG CAP PO PRN (21:42)
[2023-06-13 05:00] VITALS: BP 103/52; PULSE 60; RESP 16; TEMP 97.8; O2SAT 97
[2023-06-13] MEDS: FUROSEMIDE 40 MG TAB PO SCH (05:35)
[2023-06-13] MEDS: LEVOTHYROXINE SODIUM 50 MCG TAB PO SCH (05:35)
[2023-06-13] MEDS: ACCU-CHEK COMFORT CURVE STRIP VI SCH ×2 (05:38→12:17)
[2023-06-13] MEDS: InsuLIN REG 1unit/0.01ml Soln (100units/ml) SC SCH ×2 (05:40→12:18)
[2023-06-13 08:00] VITALS: PULSE 68
[2023-06-13 08:35] VITALS: BP 122/50; PULSE 70; RESP 18; TEMP 97.9; O2SAT 96
[2023-06-13] MEDS: SACUBITRIL-VALSARTAN 24mg/26mg TAB PO SCH (09:06)
[2023-06-13] MEDS: ENOXAPARIN SOD 30 MG/0.3 ML SYRINGE SC SCH (09:06)
[2023-06-13] MEDS: ASPirin 81 mg TAB PO SCH (09:06)
[2023-06-13] MEDS: AMIODARONE HCL 200 MG TAB PO SCH (09:07)
[2023-06-13] MEDS: DIGOXIN 0.125 MG TAB PO SCH (09:08)
[2023-06-13] MEDS: CARVEDILOL 3.125 MG TAB PO SCH (09:09)
[2023-06-13] MEDS ORDERED: CLOP75TA28 PO (09:50)
[2023-06-13] MEDS ORDERED: CLOPIDOGREL BISULFATE 75 MG TAB PO SCH (10:00)
[2023-06-13 11:17] VITALS: O2SAT 97
[2023-06-13 12:49] VITALS: BP 95/46; PULSE 59; RESP 18; TEMP 97.6; O2SAT 92
[2023-06-13 13:00] VITALS: BP 95/46; PULSE 73; RESP 18; O2SAT 97
== END 2023-06-13 14:20 | disposition home or self-care (01) | DRG 291 ==
LOC: ER 17:13 → TELE 21:25 → TELE-WESTW 06-12 02:06
PROVIDERS: ADMIT Nurse Practitioner; ATTEND Family Medicine
PROC: 4B02XTZ Measurement of Cardiac Defibrillator, External Approach (ICD-10-PCS; principal; 2023-06-12)
DX: I13.0 Hypertensive heart and chronic kidney disease with heart failure and stage 1 through stage 4 chronic kidney disease, or unspecified chronic kidney disease (principal); I50.23 Acute on chronic systolic (congestive) heart failure; J96.21 Acute and chronic respiratory failure with hypoxia; N17.9 Acute kidney failure, unspecified; I42.8 Other cardiomyopathies; N18.9 Chronic kidney disease, unspecified; E78.00 Pure hypercholesterolemia, unspecified; E66.9 Obesity, unspecified; Z68.27 Body mass index [BMI] 27.0-27.9, adult; E03.9 Hypothyroidism, unspecified; E11.22 Type 2 diabetes mellitus with diabetic chronic kidney disease; E11.40 Type 2 diabetes mellitus with diabetic neuropathy, unspecified; I25.10 Atherosclerotic heart disease of native coronary artery without angina pectoris; Z95.810 Presence of automatic (implantable) cardiac defibrillator; Z79.02 Long term (current) use of antithrombotics/antiplatelets; Z79.84 Long term (current) use of oral hypoglycemic drugs; Z82.49 Family history of ischemic heart disease and other diseases of the circulatory system; Z86.79 Personal history of other diseases of the circulatory system; Z95.5 Presence of coronary angioplasty implant and graft; I25.2 Old myocardial infarction
CPT/HCPCS: 36415; 71045; 71275; 80053; 80162; 82962; 83735; 83880; 84484; 85025; 85379; 85610; 85730; 87081; 93005; 93306; 99291; C9113; G0378; J1815; J2405; Q9956

== ENCOUNTER 2024-09-09 10:50 | Inpatient (IN) | payer MEDICARE, OTHER ==
[~2024-09-09] VITALS: Ht 172.7 cm; Wt 70.7 kg
[~2024-09-09 10:50] MED LIST changes: -ALBU108A5 IN; +AMIO200T33 PO; +ATOR-507 PO; +CLOP75TA28 PO; -EMPA1TAB PO; -LEVO500T91 PO; -PRAV20TA3 PO; +SACU1TAB PO; -SACU1TAB7 PO; +TICA90TA PO
--- NOTE | 2024-09-09 11:19 | ED.PDOC ---
History of Present Illness HPI Comments 53-year-old female with PMHx CVA, CO, CHF, Heart Transplant presents with a chief complaint of cough, SOB, and muscle pain. Patient states that she had a heart transplant at [facility] on 07/24/2024 and felt good afterwards. Patient mentions that since being released from the hospital, she has been having a persistent cough and worsening SOB. Patient reports that her pain is localized to her sternum, and is exacerbated from the coughing. Patient was hypertensive in triage at 160/55, but afebrile at 98.1F Time Seen by MD: 11:08 Primary Care Provider: BENEDICT Reviewed Notes: Nurses Notes, Medications, Allergies Allergies: Coded Allergies: Enalapril (Verified Allergy, Unknown, 03/20/23) Home Meds Active Scripts Clopidogrel Bisulfate (Plavix) 75 Mg Tab, 1 TAB PO DAILY, #90 TAB 1 Refill Prov:HENRIK LORD MD 06/13/23 Reported Medications Ticagrelor Base (BRILINTA) 90 Mg Tab, 1 TAB PO BID 06/12/23 Atorvastatin Calcium (Lipitor) 40 Mg Tab, 1 TAB PO DAILY, #30 TAB 5 Refills 06/11/23 Amiodarone Hcl (Amiodarone Hcl) 200 Mg Tab, 200 MG PO DAILY 06/11/23 Sacubitril-Valsartan (Entresto 24-26 mg) 1 Tab Tab, 1 TAB PO BID, TAB 06/11/23 Potassium Chloride (Klor-Con M20) 20 Meq Tab, 20 MEQ PO DAILY, TAB 10/15/20 Levothyroxine Sodium (Levothyroxine Sodium) 112 Mcg Tab, 112 MCG PO QAM for 30 Days, MCG 10/15/20 Glipizide (Glipizide) 10 Mg Tab, 10 MG PO BIDWM for 30 Days, MG 10/15/20 Metformin Hydrochloride (Metformin Hcl) 850 Mg Tab, 850 MG PO BIDWM for 30 Days, MG 10/15/20 Zolpidem Tartrate (Ambien) 10 Mg Tab, 1 TAB PO QHSP, #30 TAB 5 Refills 10/15/20 Magnesium Chloride (Slow-Mag) Tab, 64 MG PO DAILY, TAB 10/15/20 Aspirin (Aspir-Low) 81 Mg Tab, 81 MG PO DAILY for 30 Days, MG 10/15/20 Digoxin (Digoxin) 125 Mcg Tab, 125 MCG PO MWF, TAB 10/15/20 Spironolactone (Aldactone) 25 Mg Tab, 1 TAB PO DAILY, #90 TAB 1 Refill 10/15/20 Furosemide (Lasix) 40 Mg Tab, 40 MG PO BID, TAB 10/15/20 Carvedilol (Carvedilol) 6.25 Mg Tab, 3.125 MG PO BID for 30 Days, MG 10/15/20 Ivabradine Hydrochloride (Corlanor) 7.5 Mg Tab, 7.5 MG PO BID, TAB 10/15/20 Information Source: Patient Mode of Arrival: Ambulatory Severity: Moderate Timing: Weeks Duration: Since onset Prehospital treatment: None Past Medical History PAST MEDICAL HISTORY: CHF, CVA, DM, CO Surgical History: Appendectomy, Pacemaker, Thyroidectomy, Tonsillectomy Surgical History (Other): Heart Transplant TEXTILE BROKER History: No Pertinent TEXTILE BROKER History Family History Family History: Reviewed,noncontributory to illness, Unknown Social History Smoker: Non-Smoker Alcohol: Denies ETOH Use Drugs: Denies Drug Use Lives In: Home Constitutional: denies: chills, diaphoresis, fatigue, fever, malaise, sweats, weakness, others EENTM: denies: blurred vision, double vision, ear bleeding, ear discharge, ear drainage, ear pain, ear ringing, eye pain, eye redness, hearing loss, mouth pain, mouth swelling, nasal discharge, nose bleeding, nose congestion, nose felix n, photophobia, tearing, throat pain, throat swelling, voice changes, others Respiratory: reports: cough, shortness of breath; denies: hemoptysis, orthopnea, SOB at rest, SOB with excertion, stridor, wheezing, others Cardiovascular: denies: chest pain, dizzy spells, diaphoresis, Dyspnea on exertion, edema, irregular heart beat, left arm pain, lightheadedness, palpitations, PND, syncope, others Gastrointestinal: denies: abdomen distended, abdominal pain, blood streaked bowels, constipated, diarrhea, dysphagia, difficulty swallowing, hematemesis, melena, nausea, poor appetite, poor fluid intake, rectal bleeding, rectal pain, vomiting, others Genitourinary: denies: abnormal vagina bleeding, burning, dyspareunia, dysuria, flank pain, frequency, hematuria, incontinence, pain, , vagina discharge, urgency, others Neurological: denies: dizziness, fainting, headache, left sided numbness, left sided weakness, numbness, paresthesia, pre-existing deficit, right sided numbness, right sided weakness, seizure, speech problems, tingling, tremors, weakness, others Musculoskeletal: reports: muscle pain; denies: back pain, gout, joint pain, joint swelling, muscle stiffness, neck pain, others Integumetry: denies: bruises, change in color, change in hair/nails, dryness, laceration, lesions, lumps, rash, wounds, others Allergic/Immunocompromised: denies: Difficulty Healing, Frequent Infections, Hives, Itching, others Hematologic/Lymphatic: denies: anemia, blood clots, easy bleeding, easy bruising, swollen glands, others Endocrine: denies: excessive hunger, excessive sweating, excessive thirst, excessive urination, flushing, intolerance to cold, intolerance to heat, unexplained weight gain, unexplained weight loss, others Psychiatric: denies: anxiety, bipolar disorder, depression, hopeless, panic disorder, schizophrenia, sleepless, suicidal, others All Other Systems: Reviewed and Negative Physical Exam General Appearance: Moderate Distress HEENT: Normal ENT Inspection, Pharynx Normal, TMs Normal Neck: Full Range of Motion, Non-Tender, Normal, Normal Inspection Respiratory: Chest Non-Tender, Decreased Breath Sounds, No Accessory Muscle Use, Respiratory Distress, Wheezing Cardiovascular: No Edema, No JVD, No Murmur, No Gallop, Normal Peripheral Pulses, Regular Rate/Rhythm Breast Exam: Deferred Gastrointestinal: No Organomegaly, Non Tender, No Pulsatile Mass, Normal Bowel Sounds, Soft Genitalia: Deferred Pelvic: Deferred Rectal: Deferred Extremities: No calf tenderness, Normal capillary refill, Normal inspection, Normal range of motion, Non-tender, No pedal edema Musculoskeletal : Apperance: Normal Neurologic: Alert, environmental marketing representative II-XII nml as Tested, No Motor Deficits, Normal Affect, Normal Mood, No Sensory Deficits Cerebellar Function: Normal Reflexes: Normal Skin: Dry, Normal Color, Warm Lymphatic: No Adenopathy Was a procedure done? Was a procedure done?: No EKG EKG : Pulse Rate (adult): 73 [place]: Normal Cardiac Rhythm: NSR Block: RBBB Hypertrophy: LAE ST: Normal Differential Dx Considerations may include: ACS, CO, acute on chronic diastolic heart failure, pericardial effusion X-Ray, Labs, Meds, VS Vital Signs Date Time Temp Pulse Resp B/P (MAP) Pulse Ox O2 Delivery O2 Flow Rate FiO2 09/09/24 19:40 76 16 125/50 (75) 99 09/09/24 19:38 76 16 98 Nasal Cannula* 6 44 09/09/24 18:00 77 15 142/58 (86) 99 09/09/24 17:00 76 24 130/55 (80) 99 09/09/24 16:39 78 15 98 Nasal Cannula* 6 44 09/09/24 15:40 11 99 Nasal Cannula* 3 32 09/09/24 15:00 65 14 166/72 (103) 100 09/09/24 14:11 64 14 95 Nasal Cannula* 2 28 09/09/24 13:32 98.4 67 16 99 98.4 09/09/24 12:43 72 09/09/24 12:27 73 09/09/24 11:43 98.1 79 20 160/55 (90) 95 Lab Test 09/09/24 14:39 09/09/24 12:57 09/09/24 12:35 09/09/24 11:40 Range/Units Troponin I High Sensitivity 47 *H 49 *H 50 *H </=34 ng/L Influenza Type A Antigen Negative Negative Influenza Type B Antigen Negative Negative SARS-CoV-2 Antigen (Rapid) Negative NEGATIVE White Blood Count 10.1 4.4-10.8 10^3/uL Red Blood Count 2.72 L 4.0-5.20 10^6/uL Hemoglobin 8.4 L 12.2-16.2 g/dL Hematocrit 25.9 L 36.0-46.0 % Mean Corpuscular Volume 95.3 80.0-100.0 fL Mean Corpuscular Hemoglobin 30.7 28.0-32.0 pg Mean Corpuscular Hemoglobin Concent 32.2 32.0-36.0 g/dL Red Cell Distribution Width 19.8 H 11.8-14.3 % Platelet Count 341 140-450 10^3/uL Mean Platelet Volume 7.1 6.9-10.8 fL Neutrophils (%) (Auto) 92.5 H 37.0-80.0 % Lymphocytes (%) (Auto) 3.2 L 10.0-50.0 % Monocytes (%) (Auto) 4.0 0.0-12.0 % Eosinophils (%) (Auto) 0.1 0.0-7.0 % Basophils (%) (Auto) 0.2 0.0-2.0 % Neutrophils # (Auto) 9.4 H 1.6-8.6 10 ^3/uL Lymphocytes # (Auto) 0.3 L 0.4-5.4 10 ^3/uL Monocytes # (Auto) 0.4 0-1.3 10 ^3/uL Eosinophils # (Auto) 0 0-0.8 10 ^3/uL Basophils # (Auto) 0 0-0.2 10 ^3/uL Nucleated Red Blood Cells 0.1 % Sodium Level 139 136-145 mmol/L Potassium Level 3.3 L 3.5-5.1 mmol/L Chloride Level 98 98-107 mmol/L Carbon Dioxide Level 29 20-31 mmol/L Anion Gap 12 5-15 Blood Urea Nitrogen 24 H 9-23 mg/dL Creatinine 2.36 H 0.550-1.02 mg/dL Glomerular Filtration Rate Calc 24 >90 mL/min BUN/Creatinine Ratio 10.2 10.0-20.0 Serum Glucose 156 H 74-106 mg/dL Lactic Acid Level 1.7 0.4-2.0 mmol/L Calcium Level 9.2 8.7-10.4 mg/dL B-Type Natriuretic Peptide 611.47 0-100 pg/mL Current Medications Medications (Trade) Dose Ordered Sig/Ronal Route Start Time Stop Time Status Last Admin Albuterol (Ventolin Medneb) 5 mg ONCE ONCE HHN 09/09/24 15:30 09/09/24 15:31 DC 09/09/24 15:40 Chest X-Ray Impression: Right mid lung scarring or atelectasis. The patient was given a breathing treatment of albuterol The patient was also going to be taking her prednisone. The patient's troponin level is 50 then 49 then 47 The COVID test is negative The influenza a and influenza B are negative The patient's CBC i shows anemia with a hemoglobin of 8.4 and hematocrit 25.9 The chemistry panel shows hypokalemia at 3.3 The BUN is 24 The creatinine is 2.36 At this time, the patient was being admitted We did contact the transplant team at [facility] at did go over the results with them The recommendation is to admit the patient at this time We do not feel that the patient needs to be transferred to their facility A cardiology consult will be obtained Images Reviewed?: Images reviewed and evaluated by me Time of 1ST Reevaluation: 11:38 Reevaluation 1ST: Unchanged Patient Education/Counseling: Diagnosis, Treatment, Prognosis Family Education/Counseling: Diagnosis, Treatment, Prognosis Departure 1 Departure Time of Disposition: 19:48 Impression: Primary Impression: Acute chest pain Additional Impressions: Shortness of breath Status post heart transplant Elevated troponin Disposition: ADMITTED INPATIENT Admit to: Tele Condition: Fair Critical Care Note Critical Care Time?: Yes (45 min-critical care time only) Stability Stability form required: Yes Unstable for transfer: Telemetry monitoring (Telemetry monitoring required), ED Physician Assesment (Clinical assesment) Heart Score Heart Score: Heart Score Response (Comments) Value History Moderate Suspicious 1 EKG Repolarization Disturb 1 Age 45-64 1 Risk Factors >3 or Hx ASHD 2 Troponin 1-2 x's Normal limit 1 Total 6 I personally scribed for ESTEFANIA ESQUIVEL MD ([email or web address]) on 09/09/24 at 11:19. Electronically submitted by Justin Goncalves ([email or web address]). I personally scribed for ESTEFANIA ESQUIVEL MD ([email or web address]) on 09/09/24 at 12:04. Electronically submitted by Justin Goncalves ([email or web address]). I personally scribed for ESTEFANIA ESQUIVEL MD ([email or web address]) on 09/09/24 at 12:27. Electronically submitted by Justin Goncalves ([email or web address]). ESTEFANIA ESQUIVEL MD Sep 09, 2024 11:19
--- NOTE | 2024-09-09 12:01 | DVH ---
CHEST RADIOGRAPH Indication: sob Technique: Frontal and lateral view of the chest was obtained Comparison: XY CHEST TWO VIEWS ROUTINE on DOS: 03/23/23 FINDINGS: Lines and Tubes: Median sternotomy. Left chest wall pacemaker. Right chest pacemaker leads present. Lungs: Right mid lung scarring or atelectasis. Pleura: No effusion. No pneumothorax. Cardiomediastinal contours: Unremarkable Bones: Unremarkable IMPRESSION: Right mid lung scarring or atelectasis.
[2024-09-09 12:05] LABS: Basophils # (auto) 0 10 ^3/uL (0-0.2); Basophils % (auto) 0.2 % (0.0-2.0); Eosinophils # (auto) 0 10 ^3/uL (0-0.8); Eosinophils % (auto) 0.1 % (0.0-7.0); Hematocrit 25.9 % (36.0-46.0); Hemoglobin 8.4 g/dL (12.2-16.2); Lymphocytes # (auto) 0.3 10 ^3/uL (0.4-5.4); Lymphocytes % (auto) 3.2 % (10.0-50.0); Mean Corpuscular Hemoglobin 30.7 pg (28.0-32.0); Mean Corpuscular Hgb Conc. 32.2 g/dL (32.0-36.0); Mean Corpuscular Volume 95.3 fL (80.0-100.0); Monocytes # (auto) 0.4 10 ^3/uL (0-1.3); Neutrophils # (auto) 9.4 10 ^3/uL (1.6-8.6); Neutrophils % (auto) 92.5 % (37.0-80.0); Nucleated Red Blood Cells % 0.1 %; Platelet Count (auto) 341 10^3/uL (140-450); Red Blood Cells 2.72 10^6/uL (4.0-5.20); Red Cell Distribution Width 19.8 % (11.8-14.3); White Blood Cell 10.1 10^3/uL (4.4-10.8)
[2024-09-09 13:29] LABS: Chloride 98 mmol/L (98-107); Sodium 139 mmol/L (136-145)
[2024-09-09 13:30] LABS: Anion Gap 12 (5-15); Calcium 9.2 mg/dL (8.7-10.4); Carbon Dioxide 29 mmol/L (20-31)
[2024-09-09 13:35] LABS: BUN/Creatinine Ratio 10.2 (10.0-20.0)
[2024-09-09 13:45] LABS: Blood Urea Nitrogen 24 mg/dL (9-23); Glucose 156 mg/dL (74-106); Potassium 3.3 mmol/L (3.5-5.1)
[2024-09-09 14:11] VITALS: PULSE 64; RESP 14; O2SAT 95
[2024-09-09 14:18] LABS: COVID19 ANTIGEN SOFIA FIA NEGATIVE (NEGATIVE); Rapid Influenza A Negative (Negative); Rapid Influenza B Negative (Negative)
--- NOTE | 2024-09-09 15:37 | ECG ---
[facility] Test Date: 2024-09-09 Test Time: 11:27:21 Pat Name: CARL PENN Department: ER Room: [address] [place] [address] Gender: F Manager Specialty: ANCA : 1970 Requested By: ESTEFANIA ESQUIVEL Order Number: [id number] Reading MD: Nasim Atkinson Measurements Intervals [place] Rate: 73 P: 59 LA: 153 QRS: 61 QRSD: 121 T: 36 QT: 427 QTc: 471 Interpretive Statements Sinus rhythm Probable left atrial enlargement Right bundle branch block Inferior infarct, old Anterior infarct, old Electronically Signed On 09-10-2024 9:48:14 PST by Nasim Atkinson Please click the below link to view image of tracing.
[2024-09-09] MEDS: ALBUTEROL SULF 2.5 MG/0.5ML(0.5%) NEB SOLN HHN ONE (15:40)
[2024-09-09 16:39] VITALS: PULSE 78; RESP 15; O2SAT 98
[2024-09-09 19:38] VITALS: PULSE 76; RESP 16; O2SAT 98
[2024-09-09] MEDS: ONDANSETRON HCL 4 MG/2 ML VIAL IV ONE (20:30)
[2024-09-09] MEDS: MORPHINE SULFATE 4 MG/ML SYR/VIAL IV ONE (20:30)
--- NOTE | 2024-09-09 20:39 | DVHINCON2 ---
Date of service: Sep 09, 2024 Referring Physician Mehdi Figueroa MD Reason for Consultation Acute on chronic hypoxic respiratory failure, lung scarring, dyspnea, cough History of Present Illness A 53-year-old woman with PMHx of congestive heart failure, CVA, diabetes mellitus, myocardial infarction, s/p heart transplant who presents today with a chief complaint of cough, SOB, and muscle pain. Patient states that she had a heart transplant at [facility] on 07/24/2024 and felt good afterwards. Patient mentions that since being released from the hospital, she has been having a persistent cough and worsening SOB. Patient reports the pain is localized to her sternum and is exacerbated from the coughing. Patient was hypertensive in triage at 160/55, but afebrile at 98.1 F. Patient was admitted for further care and pulmonary consultation is requested for evaluation and management due to the above findings. Review of Systems: 14-point review of systems negative unless otherwise noted above. Past Medical History: Congestive heart failure, CVA, diabetes mellitus, myocardial infarction Past Surgical History: Heart Transplantation, Pacemaker, Thyroidectomy, Appendectomy, Tonsillectomy Medications: Reviewed. Allergies: Enalapril. Family History: Cardiomyopathy Dementia Hypertension Social History: Nonsmoker. No alcohol or illicit drug use. Family History: Cardiomyopathy G8 FATHER FH: dementia G8 MOTHER Hypertension G8 FATHER Pacemaker G8 FATHER Allergies: Coded Allergies: Acetaminophen (Verified Allergy, Unknown, HEADACHE, 09/10/24) Enalapril (Verified Allergy, Unknown, 03/20/23) Propoxyphene (Verified Allergy, Unknown, HEADACHE, 09/10/24) Ticagrelor (Verified Allergy, Unknown, SOB, 09/10/24) Home Meds Active Scripts Clopidogrel Bisulfate (Plavix) 75 Mg Tab, 1 TAB PO DAILY, #90 TAB 1 Refill Prov:HENRIK LORD MD 06/13/23 Reported Medications Ticagrelor Base (BRILINTA) 90 Mg Tab, 1 TAB PO BID 06/12/23 Atorvastatin Calcium (Lipitor) 40 Mg Tab, 1 TAB PO DAILY, #30 TAB 5 Refills 06/11/23 Amiodarone Hcl (Amiodarone Hcl) 200 Mg Tab, 200 MG PO DAILY 06/11/23 Sacubitril-Valsartan (Entresto 24-26 mg) 1 Tab Tab, 1 TAB PO BID, TAB 06/11/23 Potassium Chloride (Klor-Con M20) 20 Meq Tab, 20 MEQ PO DAILY, TAB 10/15/20 Levothyroxine Sodium (Levothyroxine Sodium) 112 Mcg Tab, 112 MCG PO QAM for 30 Days, MCG 10/15/20 Glipizide (Glipizide) 10 Mg Tab, 10 MG PO BIDWM for 30 Days, MG 10/15/20 Metformin Hydrochloride (Metformin Hcl) 850 Mg Tab, 850 MG PO BIDWM for 30 Days, MG 10/15/20 Zolpidem Tartrate (Ambien) 10 Mg Tab, 1 TAB PO QHSP, #30 TAB 5 Refills 10/15/20 Magnesium Chloride (Slow-Mag) Tab, 64 MG PO DAILY, TAB 10/15/20 Aspirin (Aspir-Low) 81 Mg Tab, 81 MG PO DAILY for 30 Days, MG 10/15/20 Digoxin (Digoxin) 125 Mcg Tab, 125 MCG PO MWF, TAB 10/15/20 Spironolactone (Aldactone) 25 Mg Tab, 1 TAB PO DAILY, #90 TAB 1 Refill 10/15/20 Furosemide (Lasix) 40 Mg Tab, 40 MG PO BID, TAB 10/15/20 Carvedilol (Carvedilol) 6.25 Mg Tab, 3.125 MG PO BID for 30 Days, MG 10/15/20 Ivabradine Hydrochloride (Corlanor) 7.5 Mg Tab, 7.5 MG PO BID, TAB 10/15/20 Current Medications Current Medications Medications (Trade) Dose Ordered Sig/Ronal Route PRN Reason Start Time Stop Time Status Last Admin Ceftriaxone Sodium 50 ml @ 100 mls/hr DAILY IV 09/09/24 20:45 UNV Doxycycline Hyclate 100 ml @ 50 mls/hr Q12HR IV 09/09/24 22:00 09/16/24 21:59 UNV Vital Signs Vital Signs Date Time Temp Pulse Resp B/P (MAP) Pulse Ox O2 Delivery O2 Flow Rate FiO2 09/09/24 19:40 76 16 125/50 (75) 99 09/09/24 19:38 Nasal Cannula* 6 44 09/09/24 13:32 98.4 98.4 Physical Exam Gen.: Patient lying in bed in no apparent distress. On supplemental oxygen. Head: Normocephalic, atraumatic. Eyes: EOMI/PERRLA. Ears: Normal hearing. Normal anatomy. Neck/trachea: Trachea midline, supple. Nose: Normal external anatomy. Mouth: Moist mucous membranes. Chest: Decreased air entry bilaterally. No wheezing or rhonchi. Cardiovascular: Positive S1, positive S2. Regular rate and rhythm. Abdomen: Positive bowel sounds in all 4 quadrants. Soft, non-tender, non-distended. : Deferred. Rectal: Deferred. Skin: Warm, dry. Intact. Extremities: 2+ radial pulses bilaterally. No lower extremity edema. Neuro: Awake, alert, oriented x3. No gross motor or sensory deficits. Cranial nerves II through XII intact. Gait not assessed. Labs/Diagnostic Data Labs Test 09/09/24 14:39 09/09/24 12:35 09/09/24 11:40 Range/Units Troponin I High Sensitivity 47 *H </=34 ng/L Influenza Type A Antigen Negative Negative Influenza Type B Antigen Negative Negative SARS-CoV-2 Antigen (Rapid) Negative NEGATIVE White Blood Count 10.1 4.4-10.8 10^3/uL Red Blood Count 2.72 L 4.0-5.20 10^6/uL Hemoglobin 8.4 L 12.2-16.2 g/dL Hematocrit 25.9 L 36.0-46.0 % Mean Corpuscular Volume 95.3 80.0-100.0 fL Mean Corpuscular Hemoglobin 30.7 28.0-32.0 pg Mean Corpuscular Hemoglobin Concent 32.2 32.0-36.0 g/dL Red Cell Distribution Width 19.8 H 11.8-14.3 % Platelet Count 341 140-450 10^3/uL Mean Platelet Volume 7.1 6.9-10.8 fL Neutrophils (%) (Auto) 92.5 H 37.0-80.0 % Lymphocytes (%) (Auto) 3.2 L 10.0-50.0 % Monocytes (%) (Auto) 4.0 0.0-12.0 % Eosinophils (%) (Auto) 0.1 0.0-7.0 % Basophils (%) (Auto) 0.2 0.0-2.0 % Neutrophils # (Auto) 9.4 H 1.6-8.6 10 ^3/uL Lymphocytes # (Auto) 0.3 L 0.4-5.4 10 ^3/uL Monocytes # (Auto) 0.4 0-1.3 10 ^3/uL Eosinophils # (Auto) 0 0-0.8 10 ^3/uL Basophils # (Auto) 0 0-0.2 10 ^3/uL Nucleated Red Blood Cells 0.1 % Sodium Level 139 136-145 mmol/L Potassium Level 3.3 L 3.5-5.1 mmol/L Chloride Level 98 98-107 mmol/L Carbon Dioxide Level 29 20-31 mmol/L Anion Gap 12 5-15 Blood Urea Nitrogen 24 H 9-23 mg/dL Creatinine 2.36 H 0.550-1.02 mg/dL Glomerular Filtration Rate Calc 24 >90 mL/min BUN/Creatinine Ratio 10.2 10.0-20.0 Serum Glucose 156 H 74-106 mg/dL Lactic Acid Level 1.7 0.4-2.0 mmol/L Calcium Level 9.2 8.7-10.4 mg/dL B-Type Natriuretic Peptide 611.47 0-100 pg/mL Assessment Impression: Acute hypoxic respiratory failure Pleuritic chest pain Atelectasis S/p heart transplant Dyspnea Cough, nonproductive Congestive heart failure End-stage renal disease, on hemodialysis Cerebrovascular accident 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 Taper O2 as tolerated. ABG reviewed, notable for acidemia Chest x-ray reviewed, demonstrates right mid lung scarring. Obtain CT chest without contrast for further evaluation Continue bronchodilators. Start antibiotics Incentive spirometry Antitussive for cough Pain control Avoid oversedation Monitor renal function. Monitor electrolytes. Supplement as necessary. Monitor ins and outs. DVT prophylaxis. Prognosis: Poor given patient's multiple co-morbidities. Rest of plan per hospitalist and other consultants. A total of 76 minutes of clinical care time was spent reviewing the patient record, examining the patient, making a diagnostic and therapeutic plan, discus sing this plan with the medical personnel, following up on diagnostic studies and following the patient for clinical stability excluding any and all procedures. At least 50% of this time was spent in direct, [id number] contact. Thank you Dr. Figueroa for allowing me to participate in this patient's care. Further recommendations will depend on the patient's clinical course. Please do not hesitate to contact me if you have any questions or concerns. This medical document was created using an electronic medical record system with [employer] computerized dictation system. Although these documentations are being carefully reviewed, there may still be some phonetic and typographical changes. The errors are purely typographical, due to imperfection on the software pr [employer], and do not reflect any compromise in the patient's medical care. Plan discussed with: Patient, Other (RN/MD Figueroa) ANDERSON PAYTON MD Sep 09, 2024 20:39
[2024-09-09] MEDS: cefTRIAXone 1GM/50ML D5W 50 ML IV SCH (20:45)
--- NOTE | 2024-09-09 21:13 | DVHHPRES ---
History of Present Illness Resident Creating Document: BETH HENSLEY RESIDENT Reason for Visit: Shortness of breadth History of Present Illness 53-year-old female with PMH of CHF, ESRD, T2D, Hypothyroidism, idiopathic hypertrophic cardiomyopathy status post heart transplant on July 14 presents with worsening dyspnea and hypoxia. Patient reports oxygen saturation dropping into the low 80s, even at rest. She experiences dyspnea while watching TV. Patient was initially stable for a week post-discharge after heart transplant but then developed recurrent shortness of breath. She has been unable to expectorate mucus and experiences painful coughing due to chest soreness. Patient also reports orthopnea and chest pain along the incision site, exacerbated by coughing. Patient has a history of perioperative complications including a left-sided stroke affecting her right arm and left eye, as well as acute kidney injury requiring dialysis three times weekly. Patient denies fever, sore throat, abdominal pain, nausea, vomiting, or urinary symptoms. She is currently on immunosuppressive therapy including prednisone, tacrolimus, and mycophenolate, as well as completing treatment for hepatitis C. Patient also notes mild lower extremity edema. Past Medical History CHF, ESRD, T2D, Hypothyroidism, idiopathic hypertrophic cardiomyopathy status post heart transplant on July Past Surgical History Heart transplant on July 14 2024 Past Social History Denies smoking, alcohol drink, illicit drug Review of Systems Review of Systems Review of Systems CONSTITUTIONAL: Denies weight loss, fever and chills. HEENT: Denies changes in vision and hearing. RESPIRATORY: Admits Coughing, shortness of breath. CV: Admits Chest pain along incision, worsens with coughing GI: Denies abdominal pain, nausea, vomiting and diarrhea. : Denies dysuria and urinary frequency. MSK: Admits Leg swelling, Denies myalgia and joint pain. SKIN: Denies rash and pruritus. NEUROLOGICAL: Denies headache Allergies: Coded Allergies: Enalapril (Verified Allergy, Unknown, 03/20/23) Propoxyphene (Verified Allergy, Unknown, HEADACHE, 09/10/24) Ticagrelor (Verified Allergy, Unknown, SOB, 09/10/24) Medications Current Medications Medications Dose Ordered Sig/Ronal Route Start Time Stop Time Status Last Admin Dose Admin Ceftriaxone Sodium 50 ml @ 100 mls/hr DAILY IV 09/09/24 20:45 UNV Doxycycline Hyclate 100 ml @ 50 mls/hr Q12HR IV 09/09/24 22:00 09/16/24 21:59 UNV Exam Vital Signs Vital Signs Date Time Temp Pulse Resp B/P (MAP) Pulse Ox O2 Delivery O2 Flow Rate FiO2 09/09/24 19:40 76 16 125/50 (75) 99 09/09/24 19:38 Nasal Cannula* 6 44 09/09/24 13:32 98.4 98.4 Exam Physical Examination GENERAL: Not in acute distress. HEENT: EOMI, Moist mucous membranes. No scleral icterus. No cervical lymphadenopathy. LUNGS: Bilateral crackles to auscultation. On supplementary oxygen CARDIOVASCULAR: Regular rate and rhythm. No murmur. No JVD. Status post heart transplant, ABDOMEN: Soft, nontender and nondistended. No palpable masses. EXTREMITIES: 1+ edema. Nontender. SKIN: No rashes or lesions. Warm. NEUROLOGIC: Alert and oriented X3 Labs/Xrays Labs Test 09/09/24 14:39 09/09/24 12:35 09/09/24 11:40 Range/Units Troponin I High Sensitivity 47 *H </=34 ng/L Influenza Type A Antigen Negative Negative Influenza Type B Antigen Negative Negative SARS-CoV-2 Antigen (Rapid) Negative NEGATIVE White Blood Count 10.1 4.4-10.8 10^3/uL Red Blood Count 2.72 L 4.0-5.20 10^6/uL Hemoglobin 8.4 L 12.2-16.2 g/dL Hematocrit 25.9 L 36.0-46.0 % Mean Corpuscular Volume 95.3 80.0-100.0 fL Mean Corpuscular Hemoglobin 30.7 28.0-32.0 pg Mean Corpuscular Hemoglobin Concent 32.2 32.0-36.0 g/dL Red Cell Distribution Width 19.8 H 11.8-14.3 % Platelet Count 341 140-450 10^3/uL Mean Platelet Volume 7.1 6.9-10.8 fL Neutrophils (%) (Auto) 92.5 H 37.0-80.0 % Lymphocytes (%) (Auto) 3.2 L 10.0-50.0 % Monocytes (%) (Auto) 4.0 0.0-12.0 % Eosinophils (%) (Auto) 0.1 0.0-7.0 % Basophils (%) (Auto) 0.2 0.0-2.0 % Neutrophils # (Auto) 9.4 H 1.6-8.6 10 ^3/uL Lymphocytes # (Auto) 0.3 L 0.4-5.4 10 ^3/uL Monocytes # (Auto) 0.4 0-1.3 10 ^3/uL Eosinophils # (Auto) 0 0-0.8 10 ^3/uL Basophils # (Auto) 0 0-0.2 10 ^3/uL Nucleated Red Blood Cells 0.1 % Sodium Level 139 136-145 mmol/L Potassium Level 3.3 L 3.5-5.1 mmol/L Chloride Level 98 98-107 mmol/L Carbon Dioxide Level 29 20-31 mmol/L Anion Gap 12 5-15 Blood Urea Nitrogen 24 H 9-23 mg/dL Creatinine 2.36 H 0.550-1.02 mg/dL Glomerular Filtration Rate Calc 24 >90 mL/min BUN/Creatinine Ratio 10.2 10.0-20.0 Serum Glucose 156 H 74-106 mg/dL Lactic Acid Level 1.7 0.4-2.0 mmol/L Calcium Level 9.2 8.7-10.4 mg/dL B-Type Natriuretic Peptide 611.47 0-100 pg/mL Assessment/Plan Assessment/Plan Assessment & Plan : # Acute hypoxic respiratory failure post heart transplant due to possible heart failure or pneumonia # possible Gm+/- bacterial pneumonia - diuresis with Lasix IV 80 mg once - restart antibiotics IV Rocephin and IV doxycycline - breathing treatment - dietary supplementary oxygen to keep oxygen saturation more than 92% # Acute on chronic HFrEF # idiopathic hypertrophic cardiomyopathy, s/p heart transplantation # Lower extremity edema - Urgent evaluation by transplant team and occupational medicine physician - transfer patient to higher level of care - Oxygen therapy as needed - echocardiogram to evaluate graft function - Review and adjust immunosuppressive regimen as needed # Diabetes mellitus type 2 - continue sliding scale insulin - monitor blood glucose level # Hypothyroidism - continue levothyroxine - monitor thyroid function # H/O stroke Patient suffered a stroke affecting the left brain and right arm the day after transplant surgery. Left eye was also affected but is expected to recover. Current neurological status and degree of recovery not specified in the transcript. - Neurological follow-up to assess recovery and rehabilitation needs - Optimize secondary stroke prevention measures # ESRD on dialysis Patient experienced kidney injury during transplant surgery, requiring dialysis three times per week. Kidney function has improved from 3% to 10%, indicating some recovery but still severe renal impairment. - Continue dialysis as scheduled - Monitor renal function and adjust dialysis regimen as needed - Nephrology follow-up to assess potential for further recovery # Post-sternotomy pain - Optimize pain management regimen # Hepatitis C - Complete current course of Hepatitis C treatment - Follow-up with infectious disease specialist to assess treatment efficacy Goal of care discussed with patient for more than 37 minute: Full code Case discussed with Dr. Clemens Plan discussed with: Patient, Spouse My Orders Orders - BETH HENSLEY RESIDENT Procedure Category Date Status Time Admit ADMIT 09/09/24 Transmitted 20:37 Date of Service: Sep 10, 2024 Billing Provider: SHEILA CLEMENS MD Common Visit Codes: [id number] INP/OBS CARE (HIGH) BETH HENSLEY RESIDENT Sep 09, 2024 21:13 SHEILA CLEMENS MD Sep 13, 2024 15:55
--- NOTE | 2024-09-09 21:29 | DVH ---
Exam: CT CHEST WITHOUT CONTRAST History: Pleuritic chest pain Comparison Study: CT CHEST WITHOUT CONTRAST on DOS: 03/21/23 Contrast: None. Radiation Dose Information: CT Dose: CTDI volume is 19.86 mGy. Dose-length product is 689.24 mGy*cm FINDINGS: There cardiomegaly patient has had open thoracotomy there are pacer wires there is atelectasis involv ing the left lower lobe interstitial parenchymal stranding in both lungs. Comparison the prior study left lower lobe consolidate appears to have improved though still present. There is generalized mild anasarca. Kidneys and adrenals appear to be grossly unremarkable. IMPRESSION: 1. Interstitial edema and small consolidative left lower base consolidated appears to have improved w ith respect prior study of 2022. Patient has cardiomegaly and pacer wires. HS:Y
[2024-09-09] MEDS: MORPHINE SULFATE INJ 2 MG/ml SYRG IV SCH (21:30)
[2024-09-09] MEDS: DOXYCYCLINE 100MG/100ML 100 ML IV SCH (22:00)
[2024-09-09] MEDS ORDERED: DEXTROSE (50%) 50ML SYRG IV PRN (22:30)
[2024-09-09 23:01] LABS: LDL Cholesterol 98 mg/dL (< 100); Triglycerides 109 mg/dL (< 150)
[2024-09-09 23:02] LABS: Cholesterol 171 mg/dL (< 200); HDL Cholesterol 53 mg/dL (40-59)
[2024-09-09] MEDS: InsuLIN REG 1unit/0.01ml Soln (100units/ml) SC ONE (23:15)
[2024-09-09] MEDS: guaiFENesin-DM 100/10mg/5ml SYR PO PRN (23:30)
[2024-09-10] MEDS: FUROSEMIDE 20 MG/2 ML VIAL IV ONE (01:30)
[2024-09-10] MEDS: FUROSEMIDE 100 MG/10ML VIAL IV ONE (01:45)
[2024-09-10 05:14] LABS: Urine Bacteria FEW /hpf (None Seen); Urine Blood Negative /uL (Negative); Urine Clarity Clear (Clear); Urine Color Light-Yellow (Yellow); Urine Hyaline Cast FEW /lpf (0 - 2); Urine Protein, UAD Negative (Negative); Urine Specific Gravity 1.008 (1.001-1.035); Urine Squamous Epithelial Cell FEW /hpf (<5); Urine Urobilinogen Normal (Negative); Urine WBC 1 /HPF (0-5)
[2024-09-10 05:46] LABS: Basophils # (auto) 0 10 ^3/uL (0-0.2); Eosinophils # (auto) 0 10 ^3/uL (0-0.8); Monocytes # (auto) 0.6 10 ^3/uL (0-1.3)
[2024-09-10 05:49] LABS: Basophils % (auto) 0.1 % (0.0-2.0); Hematocrit 23.5 % (36.0-46.0); Hemoglobin 7.6 g/dL (12.2-16.2); Lymphocytes # (auto) 0.4 10 ^3/uL (0.4-5.4); Lymphocytes % (auto) 4.1 % (10.0-50.0); Mean Corpuscular Hemoglobin 30.8 pg (28.0-32.0); Mean Corpuscular Hgb Conc. 32.6 g/dL (32.0-36.0); Mean Corpuscular Volume 94.5 fL (80.0-100.0); Monocytes % (auto) 6.1 % (0.0-12.0); Neutrophils # (auto) 9.2 10 ^3/uL (1.6-8.6); Neutrophils % (auto) 89.7 % (37.0-80.0); Nucleated Red Blood Cells % 0.2 %; Platelet Count (auto) 314 10^3/uL (140-450); Red Blood Cells 2.48 10^6/uL (4.0-5.20); Red Cell Distribution Width 19.8 % (11.8-14.3); White Blood Cell 10.3 10^3/uL (4.4-10.8)
[2024-09-10 06:13] LABS: Alanine Aminotransferase 33 U/L (7-40); Anion Gap 12 (5-15); Calcium 9.1 mg/dL (8.7-10.4); Carbon Dioxide 31 mmol/L (20-31); Potassium 3.5 mmol/L (3.5-5.1); Sodium 138 mmol/L (136-145)
[2024-09-10 06:14] LABS: BUN/Creatinine Ratio 10.6 (10.0-20.0)
[2024-09-10 06:15] LABS: Albumin 3.9 g/dL (3.2-4.8); Alkaline Phosphatase 126 U/L (46-116); Aspartate Aminotransferase 14 U/L (13-40); Bilirubin, Total 0.7 mg/dL (0.2-1.0); Blood Urea Nitrogen 30 mg/dL (9-23); Chloride 95 mmol/L (98-107); Glucose 197 mg/dL (74-106); Total Protein 6.1 g/dL (5.7-8.2)
[2024-09-10] MEDS: MORPHINE SULFATE 4 MG/ML SYR/VIAL ONE (06:44)
[2024-09-10] MEDS: ACCU-CHEK COMFORT CURVE STRIP VI SCH (07:00)
[2024-09-10] MEDS: InsuLIN REG 1unit/0.01ml Soln (100units/ml) SC SCH ×2 (07:00→21:50)
[2024-09-10 08:00] VITALS: PULSE 78; RESP 20; O2SAT 96
[2024-09-10 09:01] LABS: Free T4 (Free Thyroxine) 1.96 ng/dL (0.89-1.76)
[2024-09-10 09:02] LABS: Free T3 1.57 pg/mL (2.3-4.2)
--- NOTE | 2024-09-10 09:34 | DVHINCON2 ---
Date Seen: Sep 10, 2024 Referring Physician MD Johnson Reason for Consultation Patient has a history of cardiac transplant History of Present Illness This is a 53-year-old female patient who presents to the emergency room with chief complaint of cough and shortness of breath for approximately two weeks. She comes to the emergency room for further evaluation. Cardiology has now been consulted given her recent history of cardiac transplant. Initial twelve lead electrocardiogram reveals normal sinus rhythm with right bundle branch block. Initial troponin level of 50ng/L with flat trend thereafter. Initial BNP level of 611.47pg/mL. Significant past medical history includes idiopathic cardiomyopathy status post cardiac transplant on 07/24/24, previous history of coronary artery disease status post PTCA x2 JANET (prior to transplant), previous myocardial infarction, hypertension, end-stage renal disease on hemodialysis, CVA, type 2 diabetes mellitus, hepatitis-C, and obesity. The patient reports that she follows up at [facility] (where her transplant was done). She reports being under the care of , a Cardiothoracic surgeon, and , her physician/ophthalmologist. She reports having weekly follow up appointments with her last appointment being yesterday 09/09/23. She reports that she was unab le to physically make the appointment but had a telephone appointment in which her physician advised her to come to the emergency room given her symptoms. Past Medical History Past medical history reviewed. No other significant than mentioned above. Past Surgical History Cardiac transplant on 07/24/24 Thyroidectomy Family History: Cardiomyopathy G8 FATHER FH: dementia G8 MOTHER Hypertension G8 FATHER Pacemaker G8 FATHER Family History Family history reviewed. Social History Denies the use of tobacco, alcohol or illicit drugs. Allergies: Coded Allergies: Acetaminophen (Verified Allergy, Unknown, HEADACHE, 09/10/24) Enalapril (Verified Allergy, Unknown, 03/20/23) Propoxyphene (Verified Allergy, Unknown, HEADACHE, 09/10/24) Ticagrelor (Verified Allergy, Unknown, SOB, 09/10/24) Home Meds Active Scripts Clopidogrel Bisulfate (Plavix) 75 Mg Tab, 1 TAB PO DAILY, #90 TAB 1 Refill Prov:HENRIK LORD MD 06/13/23 Reported Medications Ticagrelor Base (BRILINTA) 90 Mg Tab, 1 TAB PO BID 06/12/23 Atorvastatin Calcium (Lipitor) 40 Mg Tab, 1 TAB PO DAILY, #30 TAB 5 Refills 06/11/23 Amiodarone Hcl (Amiodarone Hcl) 200 Mg Tab, 200 MG PO DAILY 06/11/23 Sacubitril-Valsartan (Entresto 24-26 mg) 1 Tab Tab, 1 TAB PO BID, TAB 06/11/23 Potassium Chloride (Klor-Con M20) 20 Meq Tab, 20 MEQ PO DAILY, TAB 10/15/20 Levothyroxine Sodium (Levothyroxine Sodium) 112 Mcg Tab, 112 MCG PO QAM for 30 Days, MCG 10/15/20 Glipizide (Glipizide) 10 Mg Tab, 10 MG PO BIDWM for 30 Days, MG 10/15/20 Metformin Hydrochloride (Metformin Hcl) 850 Mg Tab, 850 MG PO BIDWM for 30 Days, MG 10/15/20 Zolpidem Tartrate (Ambien) 10 Mg Tab, 1 TAB PO QHSP, #30 TAB 5 Refills 10/15/20 Magnesium Chloride (Slow-Mag) Tab, 64 MG PO DAILY, TAB 10/15/20 Aspirin (Aspir-Low) 81 Mg Tab, 81 MG PO DAILY for 30 Days, MG 10/15/20 Digoxin (Digoxin) 125 Mcg Tab, 125 MCG PO MWF, TAB 10/15/20 Spironolactone (Aldactone) 25 Mg Tab, 1 TAB PO DAILY, #90 TAB 1 Refill 10/15/20 Furosemide (Lasix) 40 Mg Tab, 40 MG PO BID, TAB 10/15/20 Carvedilol (Carvedilol) 6.25 Mg Tab, 3.125 MG PO BID for 30 Days, MG 10/15/20 Ivabradine Hydrochloride (Corlanor) 7.5 Mg Tab, 7.5 MG PO BID, TAB 10/15/20 Home Meds Home medications reviewed. Current Medications Current Medications Medications (Trade) Dose Ordered Sig/Ronal Route PRN Reason Start Time Stop Time Status Last Admin Ceftriaxone Sodium 50 ml @ 100 mls/hr DAILY IV 09/09/24 20:45 09/10/24 09:32 Doxycycline Hyclate 100 ml @ 50 mls/hr Q12HR IV 09/09/24 22:00 09/16/24 21:59 09/10/24 09:32 Diagnostic Test (Pha) (Accu-Chek Comfort Curve T) 1 strip ACHS 09/10/24 07:00 09/10/24 07:00 Insulin Human Regular (InsuLIN R) HS SC 09/10/24 22:00 Insulin Human Regular (InsuLIN R) AC SC 09/10/24 07:00 09/10/24 07:00 Dextrose 50 ml UD PRN IV Blood Sugar LESS THAN 60 09/09/24 22:30 Morphine Sulfate 2 mg Q6HPRN IV 09/09/24 23:00 09/10/24 07:37 DC Guaifenesin/ Dextromethorphan (Robitussin-Dm Liquid) 10 ml Q4HP PRN PO FOR COUGH 09/09/24 23:00 09/09/24 23:30 Levothyroxine Sodium (Synthroid Tablet) 125 mcg QAM@0600 PO 09/11/24 06:00 Morphine Sulfate 2 mg Q6HPRN PRN IV SEVERE PAIN (7-10 PAIN SCALE) 09/10/24 07:45 Review of Systems Constitutional: No symptom reported Ears, Nose, & Throat: No symptom reported Eyes: No symptom reported Neurological: No symptoms reported Pulmonary/Respiratory: Shortness of breath, cough Cardiovascular: No symptom reported Gastrointestinal: No symptom reported Genitourinary: No symptom reported Musculoskeletal: No symptom reported Skin: No symptom reported Psychiatric: No symptom reported Endocrine: No symptom reported Hematologic/Lymphatic: No symptom reported Vital Signs Vital Signs Date Time Temp Pulse Resp B/P (MAP) Pulse Ox O2 Delivery O2 Flow Rate FiO2 09/10/24 08:00 59 09/10/24 06:44 14 135/90 09/10/24 05:25 96 09/09/24 19:38 Nasal Cannula* 6 44 09/09/24 13:32 98.4 98.4 Physical Exam General Appearance: Cooperative. Well-developed. Well-nourished. No acute distress. Pulmonary/Respiratory: Diminished bilateral lower lobes Cardiovascular/Chest: Regular rate and rhythm. Peripheral Pulses: 2+ Radial (R). 2+ Radial (L). 2+ Pedal (R). 2+ Pedal (L) Abdominal Exam: Normal bowel sounds. Ankle Exam: Negative ankle edema Lower extremities: Negative lower extremity edema Neuro/Mental Status: A/OX4, coherent. Thoughts/Psych: Normal thought pattern. Appropriate mood and affect. Good judgment and insight. Appearance: No acute distress. Skin Exam: Normal inspection. Normal color. Warm and dry. Labs/Diagnostic Data Labs Test 09/10/24 04:55 09/10/24 04:46 09/09/24 23:59 09/09/24 14:39 Range/Units Urine Color Light-yellow Yellow Urine Clarity Clear Clear Urine pH 6.0 5.0-9.0 Urine Specific [place] 1.008 1.001-1.035 Urine Protein Negative Negative Urine Ketones Negative Negative Urine Blood Negative Negative /uL Urine Nitrite Negative Negative Urine Bilirubin Negative Negative Urine Urobilinogen Normal Negative mg/dL Urine Leukocyte Esterase Negative Negative /uL Urine RBC 1 0 - 4 /hpf Urine Microscopic WBC 1 0-5 /HPF Urine Squamous Epithelial Cells Few <5 /hpf Urine Bacteria Few H None Seen /hpf Urine Hyaline Casts Few 0 - 2 /lpf Urine Glucose 2+ H Normal mg/dL White Blood Count 10.3 4.4-10.8 10^3/uL Red Blood Count 2.48 L 4.0-5.20 10^6/uL Hemoglobin 7.6 L 12.2-16.2 g/dL Hematocrit 23.5 L 36.0-46.0 % Mean Corpuscular Volume 94.5 80.0-100.0 fL Mean Corpuscular Hemoglobin 30.8 28.0-32.0 pg Mean Corpuscular Hemoglobin Concent 32.6 32.0-36.0 g/dL Red Cell Distribution Width 19.8 H 11.8-14.3 % Platelet Count 314 140-450 10^3/uL Mean Platelet Volume 7.3 6.9-10.8 fL Neutrophils (%) (Auto) 89.7 H 37.0-80.0 % Lymphocytes (%) (Auto) 4.1 L 10.0-50.0 % Monocytes (%) (Auto) 6.1 0.0-12.0 % Eosinophils (%) (Auto) 0.0 0.0-7.0 % Basophils (%) (Auto) 0.1 0.0-2.0 % Neutrophils # (Auto) 9.2 H 1.6-8.6 10 ^3/uL Lymphocytes # (Auto) 0.4 0.4-5.4 10 ^3/uL Monocytes # (Auto) 0.6 0-1.3 10 ^3/uL Eosinophils # (Auto) 0 0-0.8 10 ^3/uL Basophils # (Auto) 0 0-0.2 10 ^3/uL Nucleated Red Blood Cells 0.2 % Sodium Level 138 136-145 mmol/L Potassium Level 3.5 3.5-5.1 mmol/L Chloride Level 95 L 98-107 mmol/L Carbon Dioxide Level 31 20-31 mmol/L Anion Gap 12 5-15 Blood Urea Nitrogen 30 H 9-23 mg/dL Creatinine 2.82 H 0.550-1.02 mg/dL Glomerular Filtration Rate Calc 19 >90 mL/min BUN/Creatinine Ratio 10.6 10.0-20.0 Serum Glucose 197 H 74-106 mg/dL Hemoglobin A1c 6.3 H <5.7 % A1C Calcium Level 9.1 8.7-10.4 mg/dL Total Bilirubin 0.7 0.2-1.0 mg/dL Aspartate Amino Transferase (AST) 14 13-40 U/L Alanine Aminotransferase (ALT) 33 7-40 U/L Alkaline Phosphatase 126 H 46-116 U/L Total Protein 6.1 5.7-8.2 g/dL Albumin 3.9 3.2-4.8 g/dL Free Thyroxine (T4) Calculated 1.96 H 0.89-1.76 ng/dL Free Triiodothyronine (T3) pg/mL 1.57 L 2.3-4.2 pg/mL D-Dimer, Quantitative 7.97 H 0.0-0.49 mg/L FEU Troponin I High Sensitivity 47 *H </=34 ng/L Test 09/09/24 12:35 09/09/24 11:40 Range/Units Influenza Type A Antigen Negative Negative Influenza Type B Antigen Negative Negative SARS-CoV-2 Antigen (Rapid) Negative NEGATIVE Lactic Acid Level 1.7 0.4-2.0 mmol/L B-Type Natriuretic Peptide 611.47 0-100 pg/mL Triglycerides Level 109 < 150 mg/dL Cholesterol Level 171 < 200 mg/dL LDL Cholesterol 98 < 100 mg/dL HDL Cholesterol 53 40-59 mg/dL Thyroid Stimulating Hormone (TSH) 0.15 L 0.55-4.78 uIU/mL Assessment History of idiopathic cardiomyopathy status post cardiac transplant NSTEMI Coronary artery disease status post PTCA x2 JANET (prior to transplant) History of myocardial infarction (prior to transplant) Hypertension End-stage renal disease on hemodialysis CVA Type 2 diabetes mellitus Thyroid disease Hepatitis-C Obesity Plan/Recommendation We will continue with the following plan/recommendations (Dr. Atkinson): Case reviewed with Dr. Atkinson. Transthoracic echocardiogram reveals an EF 55- 60%. Given the patient's significant cardiac history with recent cardiac transplant done at [facility], we will recommend for the patient to be transferred back to facility for further workup. In the meantime, we will recommend to continue patient on antirejection medications as well as steroids. Continue with close cardiac surveillance. Monitor for any ECG changes. Thank you for allowing us to care for this patient. Please call with any questions or concerns. Critical care time spent: 44 minutes This medical document was created using an electronic medical record system with voice recognition software and computerized dictation system. Although this document has been carefully reviewed, there might still be some phonetic and typographical errors. Occasional wrong-word or ``sound-alike substitutions may have occurred due to the inherent limitations of voice recognition software. These areas are purely typographical due to imperfections of the software programs and do not reflect any compromise in the patient's medical care. Please read the chart carefully and recognize, using context, where these substitutions have occurred. Plan discussed with: Patient NYHA Physical activity limitations: NA Date of Service: Sep 10, 2024 Billing Provider: HEMAL CORTEZ Cardiology Common Codes: [id number] INP/OBS CARE (High) Cardiology Consultation Codes: [id number] CONSULT <45MIN HEMAL CORTEZ Sep 10, 2024 09:34
--- NOTE | 2024-09-10 10:12 | DVH ---
BILATERAL LOWER EXTREMITY VENOUS DOPPLER CLINICAL HISTORY: To rule out DVT Technique: Duplex Doppler evaluation of the deep venous systems of both lower extremities from the co mmon femoral veins to the popliteal veins including color Doppler and spectral/pulsed waveform analys is was performed. COMPARISON: None FINDINGS: The right and left common femoral, superficial femoral, popliteal, posterior tibial veins and trifur cations appear patent with normal augmentation, phasicity, compressibility and color-flow. IMPRESSION: 1. There is no sonographic evidence for DVT in the lower extremities. HS:Y
[2024-09-10 10:26] LABS: Erythrocyte Sedimentation Rate 55 mm/hr (0-20)
[2024-09-10 10:50] VITALS: PULSE 63; RESP 18; O2SAT 99
[2024-09-10] MEDS: MORPHINE SULFATE INJ 2 MG/ml SYRG IV PRN (10:55)
[2024-09-10] MEDS: methylPREDNISolone SOD SUCC 40 MG/ML VL IV ONE (11:44)
[2024-09-10] MEDS: PANTOPRAZOLE 40 MG/10 ML VIAL INJ IV ONE (11:44)
--- NOTE | 2024-09-10 12:24 | DVHPNRES ---
Progress Note Date Seen: Sep 10, 2024 Resident Creating Document: NANCY BLEDSOE RESIDENT Medical Necessity Reason Pt with a Central, PICC or Fol: No Subjective Review of Systems This is a 53-year-old female with PMH of CHF, ESRD, T2D, Hypothyroidism, idiopathic hypertrophic cardiomyopathy status post heart transplant on July 14 presents with worsening dyspnea and hypoxia. Patient reports oxygen saturation dropping into the low 80s, even at rest. She experiences dyspnea while watching TV. Patient was initially stable for a week post-discharge after heart transplant but then developed recurrent shortness of breath. She has been unable to expectorate mucus and experiences painful coughing due to chest soreness. Patient also reports orthopnea and chest pain along the incision site, exacerbated by coughing. Patient has a history of perioperative complications including a left-sided stroke affecting her right arm and left eye, as well as acute kidney injury requiring dialysis three times weekly. Patient denies fever, sore throat, abdominal pain, nausea, vomiting, or urinary symptoms. She is currently on immunosuppressive therapy including prednisone, tacrolimus, and mycophenolate, as well as completing treatment for hepatitis C. Patient also notes mild lower extremity edema. The patient was seen and examined on the bedside. She is alert oriented x3 and on 3 L oxygen through nasal canula. Complaint of cough, chest pain during coughing and deep breathing. Constitutional: No: Fever, Chills, Sweats, Weakness, Malaise, Other Eyes: No: Pain, Vision change, Conjunctivae inflammation, Eyelid inflammation, Other, Redness ENT: No: Ear pain, Ear discharge, Nose pain, Nose discharge, Nose congestion, Mouth pain, Mouth swelling, Throat pain, Throat swelling, Other Respiratory: Shortness of breath, improving Cough, No Dry,Wheezing, Hemoptysis, Pleuritic Pain, Sputum, Wheezing, Other Cardiovascular: Chest Pain along the scar jason, Palpitations, Orthopnea, Paroxysmal Noc. Dyspnea, Edema, Lt Headedness, Other Gastrointestinal: No: Nausea, Vomiting, Abdominal Pain, Diarrhea, Constipation, Melena, Hematochezia, Other Musculoskeletal: No: other, neck pain, shoulder pain, arm pain, back pain, hand pain, leg pain, foot pain Neurological:; No: Weakness, Numbness, Incoordination, Change in speech, Confusion, Seizures Objective vital signs Vital Sign Date Time Temp Pulse Resp B/P (MAP) Pulse Ox O2 Delivery O2 Flow Rate FiO2 09/10/24 12:00 63 17 151/61 (91) 98 09/10/24 10:50 97.9 97.9 09/10/24 10:50 Nasal Cannula* 2 28 medications Current Medications Medications Dose Ordered Sig/Ronal Route Start Time Stop Time Status Last Admin Dose Admin Ceftriaxone Sodium 50 ml @ 100 mls/hr DAILY IV 09/09/24 20:45 09/10/24 09:32 100 MLS/HR Doxycycline Hyclate 100 ml @ 50 mls/hr Q12HR IV 09/09/24 22:00 09/16/24 21:59 09/10/24 09:32 50 MLS/HR Diagnostic Test (Pha) 1 strip ACHS 09/10/24 07:00 09/10/24 11:59 1 STRIP Insulin Human Regular HS SC 09/10/24 22:00 Insulin Human Regular AC SC 09/10/24 07:00 09/10/24 11:59 2 UNITS Dextrose 50 ml UD PRN IV 09/09/24 22:30 Guaifenesin/ Dextromethorphan 10 ml Q4HP PRN PO 09/09/24 23:00 09/10/24 10:54 10 ML Levothyroxine Sodium 125 mcg QAM@0600 PO 09/11/24 06:00 Morphine Sulfate 2 mg Q6HPRN PRN IV 09/10/24 07:45 09/10/24 10:55 2 MG Examination Physical examination: General Appearance: Alert, Oriented X3, Cooperative, No acute distress HEENT: Atraumatic, PERRLA, EOMI, Mucous membrane moist/pink Respiratory: Bilateral crackles. Cardiovascular: Regular rate, Normal S1, Normal S2, No murmurs, no chest wall tenderness Abdominal: Normal bowel sounds, Soft, No tenderness, No hepatospenomegaly, No masses Extremities: Bilateral edema 1+, No clubbing, No cyanosis, No edema, Normal pulses. Skin: No rashes, No breakdown, No significant lesion Neuro: Normal gait, Normal speech, Strength at 5/5 X4 ext, Normal tone, Sensation intact, grossly intact cranial nerves. Psych/Mental Status: Mental status NL, Mood NL laboratory and microbiology Laboratory Tests 09/10/24 04:46 Test 09/10/24 04:46 Range/Units Serum Glucose 197 H 74-106 mg/dL Microbiology Date/Time Source Procedure Growth Status 09/09/24 11:40 Blood Blood Culture - Preliminary NO GROWTH AFTER 24 HOURS OF INCUBATION. Resulted Labs and/or images reviewed: Labs reviewed by me, Image(s) reviewed by me Problem List/Assessment/Plan Problem List/Assessment/Plan Assessment & Plan : # Acute hypoxic respiratory failure s/p post transplant due to possible pneumonia # possible Gm+/- bacterial pneumonia - Lasix IV 80 mg once - IV Rocephin and IV doxycycline - breathing treatment - dietary supplementary oxygen to keep oxygen saturation more than 92% # idiopathic hypertrophic cardiomyopathy, s/p heart transplantation # Possible NSTEMI type 2 secondary to above # Ruled out acute on chronic HFrEF - Urgent evaluation by transplant team and animal control licensing worker - transfer patient to higher level of care - Oxygen therapy as needed - Elevated BNP - Transthoracic echocardiogram reveals an EF 55-60%. Cardiology demonstrated given the patient's significant cardiac history with recent cardiac transplant done at [facility], recommended the patient to be transferred back to facility for further workup. - Continue immunosuppressive therapy to prevent rejection as well as steroid. # Diabetes mellitus type 2 - Moderate sliding scale insulin - monitor blood glucose level # Hypothyroidism - continue levothyroxine 125 mcg daily. # H/O stroke Patient suffered a stroke affecting the left brain and right arm the day after transplant surgery. Left eye was also affected but is expected to recover. Current neurological status and degree of recovery not specified in the transcript. - Neurological follow-up to assess recovery and rehabilitation needs - Optimize secondary stroke prevention measures # ESRD on dialysis Patient experienced kidney injury during transplant surgery, requiring dialysis three times per week. Kidney function has improved from 3% to 10%, indicating some recovery but still severe renal impairment. - Continue dialysis as scheduled - Monitor renal function and adjust dialysis regimen as needed - Nephrology follow-up to assess potential for further recovery # Post-sternotomy pain - Optimize pain management regimen # Hepatitis C - Complete current course of Hepatitis C treatment - Follow-up with infectious disease specialist to assess treatment efficacy Goal of care discussed with the patient for more than 20 minutes full code Plan discussed with Dr. Cody Marks discussed with: Patient My Orders My Orders Orders - NANCY BLEDSOE Procedure Category Date Status Time Bilat Lower Dvt US 09/10/24 Resulted 08:00 NANCY BLEDSOE Sep 10, 2024 12:24
--- NOTE | 2024-09-10 13:18 | DVHSR ---
APPROVED REPORT EXAM: LIMITED Two-dimensional and M-mode echocardiogram with Doppler and color Doppler. Blood Pressure: 160/55 mmHg INDICATION SOB RISK FACTORS Height: 160, Weight: 55 DIMENSIONS EF (%) 55.0 (55-70%)Rt. Atrium (1.9-4.0cm)Asc. Aorta cm Mitral Valve MitralMitral Stenosis E/A ratio0.02D MVAcm2 Pulmonic Valve V21.02m/s Other Information Quality : Technically LimitedRhythm : Technically limited study due to PT had heart transplant 07/24/24, unable to obtain plax/apicals Conclusion Noted history of cardiac transplantation. Technically difficult study. Difficult acoustic windows. Limited views obtained. Sinus bradycard ia. Limited views obtained. Mild concentric LVH. Mild RV dilatation. The left atrium appears to be normal in size. The mitral valve is difficult to visualize. There is mild thickening of the leaflets. The aortic va lve is difficult to visualize. Left ventricular function appears preserved. EF of about 55-60%. Normal RV icult to visualize krishnan celia it appears to be within normal limits with mild leaflet thickening. Doppler is suboptimal. No pericardial effusion masses or vegetations discernible.
[2024-09-10 17:00] VITALS: BP 177/62; PULSE 77; RESP 16; TEMP 97.5; O2SAT 95
[2024-09-10] MEDS: SODIUM CHL 0.9% 1000 ML BAG XX ONE (17:00)
--- NOTE | 2024-09-10 19:02 | DVHINCON2 ---
Date of service: Sep 10, [address] Ornelas Reason for Consultation Dialysis maintenance History of Present Illness 53 Y/O F with history of recent cardiac transplant at [facility] (07/24/2024), complicated by Severe ANY and had to be started on hemodialysis, CAD, CVA, DM, hypothyroidism presented with chief complaint of SOB, and cough and is admitted for a possible pnuemonia. her dialysis is TTS at [facility] via Lt Subclavian TC. Nephrology consulted for dialysis maintenance. Past Medical History Heart transplant Severe ANY on dialysis CAD CVA Hepatitis C Past Surgical History cardiac transplant Allergies: Coded Allergies: Acetaminophen (Verified Allergy, Unknown, HEADACHE, 09/10/24) Enalapril (Verified Allergy, Unknown, 03/20/23) Propoxyphene (Verified Allergy, Unknown, HEADACHE, 09/10/24) Ticagrelor (Verified Allergy, Unknown, SOB, 09/10/24) Home Meds Active Scripts Clopidogrel Bisulfate (Plavix) 75 Mg Tab, 1 TAB PO DAILY, #90 TAB 1 Refill Prov:HENRIK LORD MD 06/13/23 Reported Medications Ticagrelor Base (BRILINTA) 90 Mg Tab, 1 TAB PO BID 06/12/23 Atorvastatin Calcium (Lipitor) 40 Mg Tab, 1 TAB PO DAILY, #30 TAB 5 Refills 06/11/23 Amiodarone Hcl (Amiodarone Hcl) 200 Mg Tab, 200 MG PO DAILY 06/11/23 Sacubitril-Valsartan (Entresto 24-26 mg) 1 Tab Tab, 1 TAB PO BID, TAB 06/11/23 Potassium Chloride (Klor-Con M20) 20 Meq Tab, 20 MEQ PO DAILY, TAB 10/15/20 Levothyroxine Sodium (Levothyroxine Sodium) 112 Mcg Tab, 112 MCG PO QAM for 30 Days, MCG 10/15/20 Glipizide (Glipizide) 10 Mg Tab, 10 MG PO BIDWM for 30 Days, MG 10/15/20 Metformin Hydrochloride (Metformin Hcl) 850 Mg Tab, 850 MG PO BIDWM for 30 Days, MG 10/15/20 Zolpidem Tartrate (Ambien) 10 Mg Tab, 1 TAB PO QHSP, #30 TAB 5 Refills 10/15/20 Magnesium Chloride (Slow-Mag) Tab, 64 MG PO DAILY, TAB 10/15/20 Aspirin (Aspir-Low) 81 Mg Tab, 81 MG PO DAILY for 30 Days, MG 10/15/20 Digoxin (Digoxin) 125 Mcg Tab, 125 MCG PO MWF, TAB 10/15/20 Spironolactone (Aldactone) 25 Mg Tab, 1 TAB PO DAILY, #90 TAB 1 Refill 10/15/20 Furosemide (Lasix) 40 Mg Tab, 40 MG PO BID, TAB 10/15/20 Carvedilol (Carvedilol) 6.25 Mg Tab, 3.125 MG PO BID for 30 Days, MG 10/15/20 Ivabradine Hydrochloride (Corlanor) 7.5 Mg Tab, 7.5 MG PO BID, TAB 10/15/20 Current Medications Current Medications Medications (Trade) Dose Ordered Sig/Ronal Route PRN Reason Start Time Stop Time Status Last Admin Ceftriaxone Sodium 50 ml @ 100 mls/hr DAILY IV 09/09/24 20:45 09/10/24 09:32 Doxycycline Hyclate 100 ml @ 50 mls/hr Q12HR IV 09/09/24 22:00 09/16/24 21:59 09/10/24 09:32 Diagnostic Test (Pha) (Accu-Chek Comfort Curve T) 1 strip ACHS 09/10/24 07:00 09/10/24 17:36 Insulin Human Regular (InsuLIN R) HS SC 09/10/24 22:00 Insulin Human Regular (InsuLIN R) AC SC 09/10/24 07:00 09/10/24 17:49 Dextrose 50 ml UD PRN IV Blood Sugar LESS THAN 60 09/09/24 22:30 Morphine Sulfate 2 mg Q6HPRN IV 09/09/24 23:00 09/10/24 07:37 DC Guaifenesin/ Dextromethorphan (Robitussin-Dm Liquid) 10 ml Q4HP PRN PO FOR COUGH 09/09/24 23:00 09/10/24 17:35 Levothyroxine Sodium (Synthroid Tablet) 125 mcg QAM@0600 PO 09/11/24 06:00 Morphine Sulfate 2 mg Q6HPRN PRN IV SEVERE PAIN (7-10 PAIN SCALE) 09/10/24 07:45 09/10/24 10:55 Family History: Cardiomyopathy G8 FATHER FH: dementia G8 MOTHER Hypertension G8 FATHER Pacemaker G8 FATHER Review of Systems As per HPI, all other systems were reviewed and are negative H&P Exam Vital Signs/I&O Vital Sign Date Time Temp Pulse Resp B/P (MAP) Pulse Ox O2 Delivery O2 Flow Rate FiO2 09/10/24 16:00 64 09/10/24 15:53 17 139/69 (92) 99 09/10/24 10:50 97.9 97.9 09/10/24 10:50 Nasal Cannula* 2 28 Physical Exam Gen: NAD HEENT: NC,AT Cardiac:: RRR, no murmur Lungs: crackles bases Abd: soft, no tenderness Ext: no edema + Lt subclavian TC Labs/Diagnostic Data Labs/Diagnostic Data Laboratory Tests Test 09/10/24 17:25 09/10/24 11:45 09/10/24 04:55 09/10/24 04:46 Range/Units POC Glucose 219 H 150 H 70-106 mg/dl Urine Color Light-yellow Yellow Urine Clarity Clear Clear Urine pH 6.0 5.0-9.0 Urine Specific [place] 1.008 1.001-1.035 Urine Protein Negative Negative Urine Ketones Negative Negative Urine Blood Negative Negative /uL Urine Nitrite Negative Negative Urine Bilirubin Negative Negative Urine Urobilinogen Normal Negative mg/dL Urine Leukocyte Esterase Negative Negative /uL Urine RBC 1 0 - 4 /hpf Urine Microscopic WBC 1 0-5 /HPF Urine Squamous Epithelial Cells Few <5 /hpf Urine Bacteria Few H None Seen /hpf Urine Hyaline Casts Few 0 - 2 /lpf Urine Glucose 2+ H Normal mg/dL White Blood Count 10.3 4.4-10.8 10^3/uL Red Blood Count 2.48 L 4.0-5.20 10^6/uL Hemoglobin 7.6 L 12.2-16.2 g/dL Hematocrit 23.5 L 36.0-46.0 % Mean Corpuscular Volume 94.5 80.0-100.0 fL Mean Corpuscular Hemoglobin 30.8 28.0-32.0 pg Mean Corpuscular Hemoglobin Concent 32.6 32.0-36.0 g/dL Red Cell Distribution Width 19.8 H 11.8-14.3 % Platelet Count 314 140-450 10^3/uL Mean Platelet Volume 7.3 6.9-10.8 fL Neutrophils (%) (Auto) 89.7 H 37.0-80.0 % Lymphocytes (%) (Auto) 4.1 L 10.0-50.0 % Monocytes (%) (Auto) 6.1 0.0-12.0 % Eosinophils (%) (Auto) 0.0 0.0-7.0 % Basophils (%) (Auto) 0.1 0.0-2.0 % Neutrophils # (Auto) 9.2 H 1.6-8.6 10 ^3/uL Lymphocytes # (Auto) 0.4 0.4-5.4 10 ^3/uL Monocytes # (Auto) 0.6 0-1.3 10 ^3/uL Eosinophils # (Auto) 0 0-0.8 10 ^3/uL Basophils # (Auto) 0 0-0.2 10 ^3/uL Nucleated Red Blood Cells 0.2 % Erythrocyte Sedimentation Rate 55 H 0-20 mm/hr Sodium Level 138 136-145 mmol/L Potassium Level 3.5 3.5-5.1 mmol/L Chloride Level 95 L 98-107 mmol/L Carbon Dioxide Level 31 20-31 mmol/L Anion Gap 12 5-15 Blood Urea Nitrogen 30 H 9-23 mg/dL Creatinine 2.82 H 0.550-1.02 mg/dL Glomerular Filtration Rate Calc 19 >90 mL/min BUN/Creatinine Ratio 10.6 10.0-20.0 Serum Glucose 197 H 74-106 mg/dL Hemoglobin A1c 6.3 H <5.7 % A1C Calcium Level 9.1 8.7-10.4 mg/dL Total Bilirubin 0.7 0.2-1.0 mg/dL Aspartate Amino Transferase (AST) 14 13-40 U/L Alanine Aminotransferase (ALT) 33 7-40 U/L Alkaline Phosphatase 126 H 46-116 U/L C-Reactive Protein High Sensitivity 4.05 H <1.0 mg/dL B-Type Natriuretic Peptide 502.81 0-100 pg/mL Total Protein 6.1 5.7-8.2 g/dL Albumin 3.9 3.2-4.8 g/dL Free Thyroxine (T4) Calculated 1.96 H 0.89-1.76 ng/dL Free Triiodothyronine (T3) pg/mL 1.57 L 2.3-4.2 pg/mL Test 09/09/24 23:59 09/09/24 14:39 09/09/24 12:57 09/09/24 12:35 Range/Units D-Dimer, Quantitative 7.97 H 0.0-0.49 mg/L FEU Troponin I High Sensitivity 47 *H 49 *H </=34 ng/L Influenza Type A Antigen Negative Negative Influenza Type B Antigen Negative Negative SARS-CoV-2 Antigen (Rapid) Negative NEGATIVE Test 09/09/24 11:40 Range/Units White Blood Count 10.1 4.4-10.8 10^3/uL Red Blood Count 2.72 L 4.0-5.20 10^6/uL Hemoglobin 8.4 L 12.2-16.2 g/dL Hematocrit 25.9 L 36.0-46.0 % Mean Corpuscular Volume 95.3 80.0-100.0 fL Mean Corpuscular Hemoglobin 30.7 28.0-32.0 pg Mean Corpuscular Hemoglobin Concent 32.2 32.0-36.0 g/dL Red Cell Distribution Width 19.8 H 11.8-14.3 % Platelet Count 341 140-450 10^3/uL Mean Platelet Volume 7.1 6.9-10.8 fL Neutrophils (%) (Auto) 92.5 H 37.0-80.0 % Lymphocytes (%) (Auto) 3.2 L 10.0-50.0 % Monocytes (%) (Auto) 4.0 0.0-12.0 % Eosinophils (%) (Auto) 0.1 0.0-7.0 % Basophils (%) (Auto) 0.2 0.0-2.0 % Neutrophils # (Auto) 9.4 H 1.6-8.6 10 ^3/uL Lymphocytes # (Auto) 0.3 L 0.4-5.4 10 ^3/uL Monocytes # (Auto) 0.4 0-1.3 10 ^3/uL Eosinophils # (Auto) 0 0-0.8 10 ^3/uL Basophils # (Auto) 0 0-0.2 10 ^3/uL Nucleated Red Blood Cells 0.1 % Sodium Level 139 136-145 mmol/L Potassium Level 3.3 L 3.5-5.1 mmol/L Chloride Level 98 98-107 mmol/L Carbon Dioxide Level 29 20-31 mmol/L Anion Gap 12 5-15 Blood Urea Nitrogen 24 H 9-23 mg/dL Creatinine 2.36 H 0.550-1.02 mg/dL Glomerular Filtration Rate Calc 24 >90 mL/min BUN/Creatinine Ratio 10.2 10.0-20.0 Serum Glucose 156 H 74-106 mg/dL Lactic Acid Level 1.7 0.4-2.0 mmol/L Calcium Level 9.2 8.7-10.4 mg/dL Troponin I High Sensitivity 50 *H </=34 ng/L B-Type Natriuretic Peptide 611.47 0-100 pg/mL Triglycerides Level 109 < 150 mg/dL Cholesterol Level 171 < 200 mg/dL LDL Cholesterol 98 < 100 mg/dL HDL Cholesterol 53 40-59 mg/dL Thyroid Stimulating Hormone (TSH) 0.15 L 0.55-4.78 uIU/mL Assessment Assessment: Severe ANY on intermittent HD via Lt subclavian TC. (HD started post cardiac transplant) s/p cardiac transplant (07/24/2024 at [facility]) h/o CAD h/o CVA DM Hypothyroidism Hepatitis C infection Anemia of CKD Plan: HD today. unfortunately pressure alarms due to high access pressure. BFR reduced to 250 ml/min. Will dwell activase after treatment Continue HD on TTS schedule continue IV antibiotics MADISON post HD as needed. goal Hb: 10-11 g/dl Plan discussed with: Patient KALINA SHERMAN MD Sep 10, 2024 19:02
[2024-09-10 20:00] VITALS: PULSE 65
[2024-09-10] MEDS: CATHFLO ACTIVASE (ALTEPLASE) 2 MG VIAL IV ONE (20:00)
[2024-09-10 20:05] VITALS: BP 160/86; PULSE 66; RESP 18; TEMP 97.8; O2SAT 95
[2024-09-10 21:00] VITALS: BP 130/58; PULSE 77; RESP 17; TEMP 97.7; O2SAT 97
[2024-09-11] VITALS (9 sets, daily range): BP systolic 108–150; BP diastolic 67–84; PULSE 58–78; RESP 16–19; TEMP 97.4–98.6; O2SAT 92–98
--- NOTE | 2024-09-11 05:59 | DVH ---
CHEST RADIOGRAPH Indication: interval changes Technique: Single frontal view of the chest was obtained Comparison: CT scan of the chest performed on 09/09/2024. FINDINGS: Lines and Tubes: Left central venous catheter terminates in the right atrium. Status post median ludy rnotomy. There is a catheter overlying the medial left chest Lungs: Mild interstitial edema similar to prior chest CT. Pleura: No effusion. No pneumothorax. Cardiomediastinal contours: Stable cardiovascular silhouette. Bones: No acute osseous abnormality. IMPRESSION: 1. Stable mild pulmonary edema.
[2024-09-11] MEDS: LEVOTHYROXINE SODIUM 25 MCG TAB PO SCH (06:18)
[2024-09-11] MEDS ORDERED: DEXTROSE (50%) 50ML SYRG IV PRN (06:30)
[2024-09-11] MEDS: InsuLIN REG 1unit/0.01ml Soln (100units/ml) SC SCH (06:55)
--- NOTE | 2024-09-11 06:56 | DVHPN2 ---
Progress Note - Dictate Date Seen: Sep 11, 2024 Medical Necessity Reason Pt with a Central, PICC or Fol: No Subjective no new symptoms vital signs Vital Sign Date Time Temp Pulse Resp B/P (MAP) Pulse Ox O2 Delivery O2 Flow Rate FiO2 09/11/24 05:00 97.4 60 18 129/67 (87) 96 97.4 09/10/24 20:00 Nasal Cannula* 2 28 Total Intake and Output 09/10/24 09/10/24 09/11/24 15:00 23:00 07:00 Intake Total 150 ml 200 ml 325 ml Balance 150 ml 200 ml 325 ml medications Current Medications Medications Dose Ordered Sig/Ronal Route Start Time Stop Time Status Last Admin Dose Admin Ceftriaxone Sodium 50 ml @ 100 mls/hr DAILY IV 09/09/24 20:45 09/10/24 09:32 100 MLS/HR Doxycycline Hyclate 100 ml @ 50 mls/hr Q12HR IV 09/09/24 22:00 09/16/24 21:59 09/10/24 21:24 50 MLS/HR Guaifenesin/ Dextromethorphan 10 ml Q4HP PRN PO 09/09/24 23:00 09/10/24 17:35 10 ML Levothyroxine Sodium 125 mcg QAM@0600 PO 09/11/24 06:00 09/11/24 06:18 125 MCG Morphine Sulfate 2 mg Q6HPRN PRN IV 09/10/24 07:45 09/10/24 21:36 2 MG Carvedilol 3.125 mg Q12HR PO 09/11/24 10:00 Insulin Glargine 10 units QAM SC 09/11/24 07:00 Diagnostic Test (Pha) 1 strip ACHS 09/11/24 07:00 Insulin Human Regular ACHS SC 09/11/24 07:00 Dextrose 50 ml UD PRN IV 09/11/24 06:30 laboratory and microbiology Laboratory Tests 09/10/24 04:46 Test 09/10/24 04:46 Range/Units Serum Glucose 197 H 74-106 mg/dL Assessment/Plan Assessment: Severe ANY on intermittent HD via Lt subclavian TC. (HD started post cardiac transplant) s/p cardiac transplant (07/24/2024 at [facility]) h/o CAD h/o CVA DM Hypothyroidism Hepatitis C infection Anemia of CKD Plan: s/p HD yesterday. high access pressure. BFR reduced to 250 ml/min. dwell activase after treatment Next HD tomorrow- Continue HD on TTS schedule continue immunosuppression medications continue IV antibiotics MADISON post HD as needed. goal Hb: 10-11 g/dl Plan discussed with: Patient KALINA SHERMAN MD Sep 11, 2024 06:56
[2024-09-11] MEDS: INSULIN LANTUS (GLARGINE) 1 /0.01ml (100units/ml) SC SCH (06:58)
[2024-09-11] MEDS: ACCU-CHEK COMFORT CURVE STRIP VI SCH (06:59)
[2024-09-11 08:49] LABS: Alanine Aminotransferase 33 U/L (7-40); Anion Gap 10 (5-15); Aspartate Aminotransferase 15 U/L (13-40); BUN/Creatinine Ratio 9.3 (10.0-20.0); Bilirubin, Total 0.8 mg/dL (0.2-1.0); Carbon Dioxide 31 mmol/L (20-31); Potassium 3.8 mmol/L (3.5-5.1); Sodium 138 mmol/L (136-145); Total Protein 6.2 g/dL (5.7-8.2)
[2024-09-11 08:53] LABS: Basophils # (auto) 0 10 ^3/uL (0-0.2); Basophils % (auto) 0.1 % (0.0-2.0); Eosinophils # (auto) 0 10 ^3/uL (0-0.8); Hematocrit 25.9 % (36.0-46.0); Hemoglobin 8.4 g/dL (12.2-16.2); Lymphocytes # (auto) 0.4 10 ^3/uL (0.4-5.4); Lymphocytes % (auto) 4.8 % (10.0-50.0); Mean Corpuscular Hemoglobin 30.9 pg (28.0-32.0); Mean Corpuscular Hgb Conc. 32.3 g/dL (32.0-36.0); Mean Corpuscular Volume 95.4 fL (80.0-100.0); Monocytes # (auto) 0.8 10 ^3/uL (0-1.3); Monocytes % (auto) 8.1 % (0.0-12.0); Neutrophils # (auto) 8.2 10 ^3/uL (1.6-8.6); Platelet Count (auto) 333 10^3/uL (140-450); Red Blood Cells 2.72 10^6/uL (4.0-5.20); Red Cell Distribution Width 19.8 % (11.8-14.3); White Blood Cell 9.4 10^3/uL (4.4-10.8)
[2024-09-11 08:57] LABS: Alkaline Phosphatase 133 U/L (46-116); Blood Urea Nitrogen 24 mg/dL (9-23); Chloride 97 mmol/L (98-107); Glucose 210 mg/dL (74-106)
[2024-09-11] MEDS: CARVEDILOL 3.125 MG TAB PO SCH (09:24)
[2024-09-11 09:34] LABS: Calcium 9.6 mg/dL (8.7-10.4)
[2024-09-11] MEDS: ACETAMINOPHEN 325 MG TAB PO ONE (09:48)
[2024-09-11] MEDS ORDERED: LEVO150T10 PO (10:22)
[2024-09-11] MEDS ORDERED: PANT40T PO (10:22)
[2024-09-11] MEDS ORDERED: METH-1181 PO ×2 (10:22→16:48)
[2024-09-11] MEDS ORDERED: POTA-180 PO (10:22)
[2024-09-11] MEDS ORDERED: SACU1TAB7 PO (10:22)
[2024-09-11] MEDS ORDERED: BUME2TAB5 PO (10:22)
--- NOTE | 2024-09-11 15:29 | DVHPN2 ---
Consult Progress Note Subjective Other Systems: Patient in normal sinus rhythm on home care specialist. Objective vital signs Vital Sign Date Time Temp Pulse Resp B/P (MAP) Pulse Ox O2 Delivery O2 Flow Rate FiO2 09/11/24 13:00 98.1 58 16 108/67 (81) 92 98.1 09/11/24 08:00 Nasal Cannula* 2 28 Total Intake and Output 09/10/24 09/10/24 09/11/24 15:00 23:00 07:00 Intake Total 150 ml 200 ml 325 ml Balance 150 ml 200 ml 325 ml medications Current Medications Medications Dose Ordered Sig/Ronal Route Start Time Stop Time Status Last Admin Dose Admin Ceftriaxone Sodium 50 ml @ 100 mls/hr DAILY IV 09/09/24 20:45 09/11/24 09:10 100 MLS/HR Doxycycline Hyclate 100 ml @ 50 mls/hr Q12HR IV 09/09/24 22:00 09/16/24 21:59 09/11/24 09:49 50 MLS/HR Guaifenesin/ Dextromethorphan 10 ml Q4HP PRN PO 09/09/24 23:00 09/10/24 17:35 10 ML Levothyroxine Sodium 125 mcg QAM@0600 PO 09/11/24 06:00 09/11/24 06:18 125 MCG Morphine Sulfate 2 mg Q6HPRN PRN IV 09/10/24 07:45 09/10/24 21:36 2 MG Insulin Glargine 10 units QAM SC 09/11/24 07:00 09/11/24 06:58 10 UNITS Diagnostic Test (Pha) 1 strip ACHS 09/11/24 07:00 09/11/24 11:30 1 STRIP Insulin Human Regular ACHS SC 09/11/24 07:00 09/11/24 13:00 4 UNITS Dextrose 50 ml UD PRN IV 09/11/24 06:30 Examination: GENERAL:Normal, LUNGS:Normal, CVS:Normal, NEURO:Normal laboratory and microbiology Laboratory Tests 09/11/24 07:52 Test 09/11/24 07:52 Range/Units Serum Glucose 210 H 74-106 mg/dL Problem List/Assessment/Plan Problem List/Assessment/Plan History of idiopathic cardiomyopathy status post cardiac transplant NSTEMI Coronary artery disease status post PTCA x2 JANET (prior to transplant) History of myocardial infarction (prior to transplant) Hypertension End-stage renal disease on hemodialysis CVA Type 2 diabetes mellitus Thyroid disease Hepatitis-C Obesity Plan/Recommendation We will continue with the following plan/recommendations (Dr. Conley): Patient seen and examined at bedside with . Transthoracic echocardiogram reveals an EF 55-60%. Given the patient's significant cardiac history with recent cardiac transplant done at [facility], we will recommend for the patient to be transferred back to facility for further workup. In the meantime, we will recommend to continue patient on antirejection medications as well as steroids. Continue with close cardiac surveillance. Monitor for any ECG changes. Thank you for allowing us to care for this patient. Please call with any questions or concerns. This medical document was created using an electronic medical record system with voice recognition software and computerized dictation system. Although this document has been carefully reviewed, there might still be some phonetic and typographical errors. Occasional wrong-word or ``sound-alike substitutions may have occurred due to the inherent limitations of voice recognition software. These areas are purely typographical due to imperfections of the software programs and do not reflect any compromise in the patient's medical care. Please read the chart carefully and recognize, using context, where these substitutions have occurred. Plan discussed with: Patient Date of Service: Sep 11, 2024 Billing Provider: HEMAL CORTEZ Common Visit Codes: [id number] INP/OBS CARE(HIGH) HEMAL CORTEZ Sep 11, 2024 15:29
[2024-09-11] MEDS ORDERED: [UNRECOGNIZED DRUG - CODE] PO ×2 (16:29)
[2024-09-11] MEDS ORDERED: OXY5T GT (16:33)
[2024-09-11] MEDS ORDERED: B-CO1TAB60 OR (16:33)
[2024-09-11] MEDS ORDERED: CLOT10TR MT (16:35)
[2024-09-11] MEDS ORDERED: CALC1TAB PO (16:48)
[2024-09-11] MEDS ORDERED: MYCO250C PO (16:48)
[2024-09-11] MEDS ORDERED: TRAZ-227 PO (16:48)
[2024-09-11] MEDS ORDERED: TACR1CAP19 (16:48)
[2024-09-11] MEDS ORDERED: PRE1T PO (16:48)
[2024-09-11] MEDS ORDERED: VALG450T7 PO (16:48)
--- NOTE | 2024-09-11 16:57 | ECG ---
[facility] Test Date: 2024-09-11 Test Time: 16:54:47 Pat Name: CARL PENN Department: Room: 0297T A Gender: F [employer] Operator: venecia : 1970 Requested By: NANCY BLEDSOE Order Number: [id number] Reading MD: Nasim Atkinson Measurements Intervals Serafina Rate: 70 P: 41 MT: 161 QRS: 43 QRSD: 120 T: 13 QT: 442 QTc: 477 Interpretive Statements Sinus rhythm IVCD, consider atypical RBBB Inferior infarct, old Anterior infarct, age indeterminate Electronically Signed On 09-12-2024 19:35:54 PST by Nasim Atkinson Please click the below link to view image of tracing.
[2024-09-11] MEDS ORDERED: NITROGLYCERIN 0.4 MG SL TAB SL ONE (17:00)
[2024-09-11] MEDS: MORPHINE SULFATE INJ 2 MG/ml SYRG IV ONE (17:00)
[2024-09-11] MEDS ORDERED: LACTULOSE 20Gm/30ML SOLN PO ONE (18:15)
--- NOTE | 2024-09-11 18:52 | DVHDSRES ---
Discharge Summary Date of Admission Resident Creating Document: NANCY BLEDSOE RESIDENT Sep 09, 2024 at 20:37 Date of Discharge: Sep 11, 2024 Admitting Diagnosis # Acute hypoxic respiratory failure s/p post transplant due to possible pneumonia Wounds: No wound was present Labs/Diagnostic Data: Laboratory Results Test 09/11/24 17:25 09/11/24 07:52 09/11/24 06:09 09/10/24 04:55 Troponin I High Sensitivity 47 ng/L (</=34) White Blood Count 9.4 10^3/uL (4.4-10.8) Red Blood Count 2.72 10^6/uL (4.0-5.20) Hemoglobin 8.4 g/dL (12.2-16.2) Hematocrit 25.9 % (36.0-46.0) Mean Corpuscular Volume 95.4 fL (80.0-100.0) Mean Corpuscular Hemoglobin 30.9 pg (28.0-32.0) Mean Corpuscular Hemoglobin Concent 32.3 g/dL (32.0-36.0) Red Cell Distribution Width 19.8 % (11.8-14.3) Platelet Count 333 10^3/uL (140-450) Mean Platelet Volume 7.4 fL (6.9-10.8) Neutrophils (%) (Auto) 87.0 % (37.0-80.0) Lymphocytes (%) (Auto) 4.8 % (10.0-50.0) Monocytes (%) (Auto) 8.1 % (0.0-12.0) Eosinophils (%) (Auto) 0.0 % (0.0-7.0) Basophils (%) (Auto) 0.1 % (0.0-2.0) Neutrophils # (Auto) 8.2 10 ^3/uL (1.6-8.6) Lymphocytes # (Auto) 0.4 10 ^3/uL (0.4-5.4) Monocytes # (Auto) 0.8 10 ^3/uL (0-1.3) Eosinophils # (Auto) 0 10 ^3/uL (0-0.8) Basophils # (Auto) 0 10 ^3/uL (0-0.2) Nucleated Red Blood Cells 0.0 % Sodium Level 138 mmol/L (136-145) Potassium Level 3.8 mmol/L (3.5-5.1) Chloride Level 97 mmol/L (98-107) Carbon Dioxide Level 31 mmol/L (20-31) Anion Gap 10 (5-15) Blood Urea Nitrogen 24 mg/dL (9-23) Creatinine 2.57 mg/dL (0.550-1.02) Glomerular Filtration Rate Calc 22 mL/min (>90) BUN/Creatinine Ratio 9.3 (10.0-20.0) Serum Glucose 210 mg/dL (74-106) Calcium Level 9.6 mg/dL (8.7-10.4) Total Bilirubin 0.8 mg/dL (0.2-1.0) Aspartate Amino Transferase (AST) 15 U/L (13-40) Alanine Aminotransferase (ALT) 33 U/L (7-40) Alkaline Phosphatase 133 U/L (46-116) Total Protein 6.2 g/dL (5.7-8.2) Albumin 4.0 g/dL (3.2-4.8) POC Glucose 199 mg/dl (70-106) Urine Color Light-yellow (Yellow) Urine Clarity Clear (Clear) Urine pH 6.0 (5.0-9.0) Urine Specific [place] 1.008 (1.001-1.035) Urine Protein Negative (Negative) Urine Ketones Negative (Negative) Urine Blood Negative /uL (Negative) Urine Nitrite Negative (Negative) Urine Bilirubin Negative (Negative) Urine Urobilinogen Normal mg/dL (Negative) Urine Leukocyte Esterase Negative /uL (Negative) Urine RBC 1 /hpf (0 - 4) Urine Microscopic WBC 1 /HPF (0-5) Urine Squamous Epithelial Cells Few /hpf (<5) Urine Bacteria Few /hpf (None Seen) Urine Hyaline Casts Few /lpf (0 - 2) Urine Glucose 2+ mg/dL (Normal) Test 09/10/24 04:46 09/09/24 23:59 09/09/24 12:35 09/09/24 11:40 Erythrocyte Sedimentation Rate 55 mm/hr (0-20) Hemoglobin A1c 6.3 % A1C (<5.7) C-Reactive Protein High Sensitivity 4.05 mg/dL (<1.0) B-Type Natriuretic Peptide 502.81 pg/mL (0-100) Free Thyroxine (T4) Calculated 1.96 ng/dL (0.89-1.76) Free Triiodothyronine (T3) pg/mL 1.57 pg/mL (2.3-4.2) D-Dimer, Quantitative 7.97 mg/L FEU (0.0-0.49) Influenza Type A Antigen Negative (Negative) Influenza Type B Antigen Negative (Negative) SARS-CoV-2 Antigen (Rapid) Negative (NEGATIVE) Lactic Acid Level 1.7 mmol/L (0.4-2.0) Triglycerides Level 109 mg/dL (< 150) Cholesterol Level 171 mg/dL (< 200) LDL Cholesterol 98 mg/dL (< 100) HDL Cholesterol 53 mg/dL (40-59) Thyroid Stimulating Hormone (TSH) 0.15 uIU/mL (0.55-4.78) Other Laboratory Tests 09/11/24 07:52 Brief Hx & Hospital Course: This is a 53-year-old female with PMH of CHF, ESRD, T2D, Hypothyroidism, idiopathic hypertrophic cardiomyopathy status post heart transplant on July 14 presents with worsening dyspnea and hypoxia. Patient reports oxygen saturation dropping into the low 80s, even at rest. She experiences dyspnea while watching TV. Patient was initially stable for a week post-discharge after heart transplant but then developed recurrent shortness of breath. She has been unable to expectorate mucus and experiences painful coughing due to chest soreness. Patient also reports orthopnea and chest pain along the incision site, exacerbated by coughing. Patient has a history of perioperative complications including a left-sided stroke affecting her right arm and left eye, as well as acute kidney injury requiring dialysis three times weekly. Patient denies fever, sore throat, abdominal pain, nausea, vomiting, or urinary symptoms. She is currently on immunosuppressive therapy including prednisone, tacrolimus, and mycophenolate, as well as completing treatment for hepatitis C. Patient also notes mild lower extremity edema. Hospital course: initially the patient was presented with acute hypoxic respiratory failure s/p post transplant due to possible pneumonia . CBC was unremarkable except normocytic normochromic anemia. CT chest demonstrated Interstitial edema and small consolidative left lower base consolidated appears to have improved with respect prior study of 2022. Patient has cardiomegaly and pacer wires. Patient was treated with oxygen through nasal cannula 3 L with saturation 94%, Lasix IV 80 mg once, IV Rocephin 1 g daily and IV doxycycline 100 mg b.i.d., med neb with albuterol and ipratropium q.6 p.r.n.. troponin trends were 50>49>47>47 echo revealed ejection fraction 55-60% cardiology was also on board and recommended transfer to higher level of care in [facility] and continue the same immunosuppressive treatment that patient was on. Patient had 1 episode of inpatient dialysis during the hospital stay and removed 2 L and BUN/Creatinine after the dialysis was 24/2.57. we also treated the patient by continuing the home meds including immunosuppressive treatment for status post heart transplant . Discharge plan was discussed with the patient all questions were answered . patient is being transferred to higher level of care in [facility]. Discharge diagnosis: # Acute hypoxic respiratory failure s/p post transplant due to possible pneumonia # possible gram positive/negative bacterial pneumonia # idiopathic hypertrophic cardiomyopathy, s/p heart transplantation # Possible NSTEMI type 2 secondary to above # Ruled out acute on chronic HFrEF # Diabetes mellitus type 2 # Hypothyroidism # H/O stroke # ESRD on dialysis # Post-sternotomy pain # Chronic Hepatitis C diagnosed s/p heart transplant and currently on treatment. Discharge plan: Disposition : Higher level of care in [facility] Medications: Included in transfer paper Consults/Reason for consult Cardiology and nephrology were consulted Operations or Procedures Exam: CT CHEST WITHOUT CONTRAST History: Pleuritic chest pain Comparison Study: CT CHEST WITHOUT CONTRAST on DOS: 03/21/23 Contrast: None. Radiation Dose Information: CT Dose: CTDI volume is 19.86 mGy. Dose-length product is 689.24 mGy*cm FINDINGS: There cardiomegaly patient has had open thoracotomy there are pacer wires there is atelectasis involving the left lower lobe interstitial parenchymal stranding in both lungs. Comparison the prior study left lower lobe consolidate appears to have improved though still present. There is generalized mild anasarca. Kidneys and adrenals appear to be grossly unremarkable. IMPRESSION: 1. Interstitial edema and small consolidative left lower base consolidated appears to have improved with respect prior study of 2022. Patient has cardiomegaly and pacer wires. BILATERAL LOWER EXTREMITY VENOUS DOPPLER CLINICAL HISTORY: To rule out DVT Technique: Duplex Doppler evaluation of the deep venous systems of both lower extremities from the common femoral veins to the popliteal veins including color Doppler and spectral/pulsed waveform analysis was performed. COMPARISON: None FINDINGS: The right and left common femoral, superficial femoral, popliteal, posterior tibial veins and trifurcations appear patent with normal augmentation, phasicity, compressibility and color-flow. IMPRESSION: 1. There is no sonographic evidence for DVT in the lower extremities. CHEST RADIOGRAPH Indication: interval changes Technique: Single frontal view of the chest was obtained Comparison: CT scan of the chest performed on 09/09/2024. FINDINGS: Lines and Tubes: Left central venous catheter terminates in the right atrium. Status post median sternotomy. There is a catheter overlying the medial left chest Lungs: Mild interstitial edema similar to prior chest CT. Pleura: No effusion. No pneumothorax. Cardiomediastinal contours: Stable cardiovascular silhouette. Bones: No acute osseous abnormality. IMPRESSION: 1. Stable mild pulmonary edema. Condition at Discharge: Stable Final Diagnosis/Problems List # Acute hypoxic respiratory failure s/p post transplant due to possible pneumonia # possible gram positive/negative bacterial pneumonia # idiopathic hypertrophic cardiomyopathy, s/p heart transplantation # Possible NSTEMI type 2 secondary to above # Ruled out acute on chronic HFrEF # Diabetes mellitus type 2 # Hypothyroidism # H/O stroke # ESRD on dialysis # Post-sternotomy pain # Chronic Hepatitis C diagnosed s/p heart transplant and currently on treatment. Discharge Disposition: Acute Care Facility Discharge Instruct/Medications Diet: Consistent carbohydrate, Cardiac 2g Na,low cholest Activity: No Restrictions, As Tolerated Medications: In transfer paper Discharge Statement: "Patient was advised to return to the ER or call 911 if any headaches, dizziness, shortness of breath, chest pain, abdominal pain, bleeding, fevers, or worsening of medical condition. Patient was counseled about treatment plan, medications, possible side effects, patientverbalized understanding. All questions were answered to the best of my ability. This discharge took greater then 30 minutes in planning, reviewing documentation, counseling the patient, and discussing with other team members." ASSESSMENT ASSESSMENT Assessment # Acute hypoxic respiratory failure s/p post transplant due to possible pneumonia # possible gram positive/negative bacterial pneumonia # idiopathic hypertrophic cardiomyopathy, s/p heart transplantation # Possible NSTEMI type 2 secondary to above # Ruled out acute on chronic HFrEF # Diabetes mellitus type 2 # Hypothyroidism # H/O stroke # ESRD on dialysis # Post-sternotomy pain # Chronic Hepatitis C diagnosed s/p heart transplant and currently on treatment. NANCY BLEDSOE RESIDENT Sep 11, 2024 18:52
[2024-09-11] MEDS: DOCUSATE SOD 100 MG CAP PO SCH (21:01)
--- NOTE | 2024-09-11 23:32 | DVHPN2 ---
Progress Note - Dictate Date Seen: Sep 11, 2024 Medical Necessity Reason Pt with a Central, PICC or Fol: No Subjective Patient seen and examined at bedside. Remains on supplemental oxygen Overnight events reviewed. vital signs Vital Sign Date Time Temp Pulse Resp B/P (MAP) Pulse Ox O2 Delivery O2 Flow Rate FiO2 09/11/24 21:00 97.8 76 18 142/71 (94) 95 97.8 09/11/24 20:00 Nasal Cannula* 2 28 Total Intake and Output 09/10/24 09/10/24 09/11/24 15:00 23:00 07:00 Intake Total 150 ml 200 ml 325 ml Balance 150 ml 200 ml 325 ml medications Current Medications Medications Dose Ordered Sig/Ronal Route Start Time Stop Time Status Last Admin Dose Admin Ceftriaxone Sodium 50 ml @ 100 mls/hr DAILY IV 09/09/24 20:45 09/11/24 09:10 100 MLS/HR Doxycycline Hyclate 100 ml @ 50 mls/hr Q12HR IV 09/09/24 22:00 09/16/24 21:59 09/11/24 09:49 50 MLS/HR Guaifenesin/ Dextromethorphan 10 ml Q4HP PRN PO 09/09/24 23:00 09/10/24 17:35 10 ML Levothyroxine Sodium 125 mcg QAM@0600 PO 09/11/24 06:00 09/11/24 06:18 125 MCG Morphine Sulfate 2 mg Q6HPRN PRN IV 09/10/24 07:45 09/10/24 21:36 2 MG Insulin Glargine 10 units QAM SC 09/11/24 07:00 09/11/24 06:58 10 UNITS Diagnostic Test (Pha) 1 strip ACHS 09/11/24 07:00 09/11/24 22:41 1 STRIP Insulin Human Regular ACHS SC 09/11/24 07:00 09/11/24 22:43 6 UNITS Dextrose 50 ml UD PRN IV 09/11/24 06:30 Docusate Sodium 100 mg BID PO 09/11/24 22:00 09/11/24 21:01 100 MG objective Gen.: Patient lying in bed in no apparent distress. On supplemental oxygen. Head: Normocephalic, atraumatic. Eyes: EOMI/PERRLA. Ears: Normal hearing. Normal anatomy. Neck/trachea: Trachea midline, supple. Nose: Normal external anatomy. Mouth: Moist mucous membranes. Chest: Decreased air entry bilaterally. No wheezing or rhonchi. Cardiovascular: Positive S1, positive S2. Regular rate and rhythm. Abdomen: Positive bowel sounds in all 4 quadrants. Soft, non-tender, non- distended. : Deferred. Rectal: Deferred. Skin: Warm, dry. Intact. Extremities: 2+ radial pulses bilaterally. No lower extremity edema. Neuro: Awake, alert, oriented x3. No gross motor or sensory deficits. Cranial nerves II through XII intact. Gait not assessed. laboratory and microbiology Laboratory Tests 09/11/24 07:52 Test 09/11/24 07:52 Range/Units Serum Glucose 210 H 74-106 mg/dL Assessment/Plan Impression: Acute hypoxic respiratory failure Pleuritic chest pain Atelectasis S/p heart transplant Dyspnea Cough, nonproductive Congestive heart failure End-stage renal disease, on hemodialysis Cerebrovascular accident CHRF w/ dependence on nocturnal supplemental O2 Elevated troponin Events: Remains on supplemental oxygen, 2 LPM NC Taper O2 as tolerated Continue antibiotics Antitussive for cough Incentive spirometry Blood cultures show no growth for 48 hours CXR reviewed, demonstrates mild pulmonary edema. Accu-Cheks, ISS. Labs and imaging reviewed. Rest of plan as noted below. Plan: Supplemental oxygen Titrate to keep O2 sats above 92%. Continue antibiotics Incentive spirometry Antitussive for cough Pain control Avoid oversedation Monitor renal function. Monitor electrolytes. Supplement as necessary. Monitor ins and outs. DVT prophylaxis. Prognosis: Guarded given patient's multiple co-morbidities. Rest of plan per hospitalist and other consultants. A total of 51 minutes of clinical care time was spent reviewing the patient record, examining the patient, making a diagnostic and therapeutic plan, discussing this plan with the medical personnel, following up on diagnostic studies and following the patient for clinical stability excluding any and all procedures. At least 50% of this time was spent in direct, [id number] contact. Thank you Dr. Figueroa for allowing me to participate in this patient's care. Further recommendations will depend on the patient's clinical course. Please do not hesitate to contact me if you have any questions or concerns. This medical document was created using an electronic medical record system with [employer] system. Although these documentations are being carefully reviewed, there may still be some phonetic and typographical changes. The errors are purely typographical, due to imperfection on the software program, and do not reflect any compromise in the patient's medical care. Plan discussed with: Patient, Other (RN) ANDERSON PAYTON MD Sep 11, 2024 23:32
--- NOTE | 2024-09-11 23:45 | DVHPN2 ---
Consult Progress Note Subjective Other Systems: Patient was seen and evaluated in follow up. Patient in normal sinus rhythm on telemetry monitor. Patient is being arranged for transfer to [facility]. HGB 8.4, HCT 25.9, CL 97, BUN 24, [employer] 2.57. Chest x-ray shows stable mild pulmonary edema. Objective vital signs Vital Sign Date Time Temp Pulse Resp B/P (MAP) Pulse Ox O2 Delivery O2 Flow Rate FiO2 09/11/24 21:00 97.8 76 18 142/71 (94) 95 97.8 09/11/24 08:00 Nasal Cannula* 2 28 Total Intake and Output 09/10/24 09/10/24 09/11/24 15:00 23:00 07:00 Intake Total 150 ml 200 ml 325 ml Balance 150 ml 200 ml 325 ml medications Current Medications Medications Dose Ordered Sig/Ronal Route Start Time Stop Time Status Last Admin Dose Admin Ceftriaxone Sodium 50 ml @ 100 mls/hr DAILY IV 09/09/24 20:45 09/11/24 09:10 100 MLS/HR Doxycycline Hyclate 100 ml @ 50 mls/hr Q12HR IV 09/09/24 22:00 09/16/24 21:59 09/11/24 09:49 50 MLS/HR Guaifenesin/ Dextromethorphan 10 ml Q4HP PRN PO 09/09/24 23:00 09/10/24 17:35 10 ML Levothyroxine Sodium 125 mcg QAM@0600 PO 09/11/24 06:00 09/11/24 06:18 125 MCG Morphine Sulfate 2 mg Q6HPRN PRN IV 09/10/24 07:45 09/10/24 21:36 2 MG Insulin Glargine 10 units QAM SC 09/11/24 07:00 09/11/24 06:58 10 UNITS Diagnostic Test (Pha) 1 strip ACHS 09/11/24 07:00 09/11/24 22:41 1 STRIP Insulin Human Regular ACHS SC 09/11/24 07:00 09/11/24 22:43 6 UNITS Dextrose 50 ml UD PRN IV 09/11/24 06:30 Docusate Sodium 100 mg BID PO 09/11/24 22:00 09/11/24 21:01 100 MG Examination: GENERAL:Normal, HEENT:Normal, NECK:Normal, LUNGS:Normal, CVS:Normal, ABDOMEN:Normal, MSK:Normal, NEURO:Normal laboratory and microbiology Laboratory Tests 09/11/24 07:52 Test 09/11/24 07:52 Range/Units Serum Glucose 210 H 74-106 mg/dL Problem List/Assessment/Plan Problem List/Assessment/Plan History of idiopathic cardiomyopathy status post cardiac transplant. NSTEMI. Coronary artery disease status post PTCA x2 JANET (prior to transplant). History of myocardial infarction (prior to transplant). Hypertension. End-stage renal disease on hemodialysis. CVA. Type 2 diabetes mellitus. Thyroid disease. Hepatitis-C. Obesity. Plan/Recommendation Continued all current supportive medical care. Patient has been seen by Adelina Gold NP on my behalf, her and I discussed the plan with the patient. Telemetry reviewed. Transthoracic echocardiogram reveals an EF 55-60%. Given the patient's significant cardiac history with recent cardiac transplant done at [facility], we will recommend for the patient to be transferred back to facility for further workup. In the meantime, we will recommend to continue patient on antirejection medications as well as steroids. Continue with close cardiac surveillance. Monitor for any ECG changes. Additional plan as per the hospital course. Plan discussed with: Patient Date of Service: Sep 11, 2024 Billing Provider: GRETEL REAL MD Cardiology Common Codes: 89866-[facility] [facility](High GRETEL REAL MD Sep 11, 2024 22:59
[2024-09-12] MEDS ORDERED: SODIUM CHL 0.9% 1000 ML BAG XX ONE (07:00)
[2024-09-12] MEDS ORDERED: EPOETIN ALFA-EPBX 10,000 UNIT/1ML VIAL SC ONE (21:00)
[2024-09-14 09:09] LABS: Hepatitis B Surface Antigen Negative (Negative)
[2024-09-14 09:27] LABS: Hepatitis A Ab IgM Negative; Hepatitis B Core IgM Negative (Negative); Hepatitis C Antibody Negative (Negative)
== END 2024-09-11 22:48 | disposition short-term general hospital (02) | DRG 189 ==
LOC: ER 10:50 → TELE 20:37 → TELE-WESTW 09-10 16:36
PROVIDERS: ADMIT Student in an Organized Health Care Education/Training Program; ATTEND Emergency Medicine
PROC: 5A1D70Z Performance of Urinary Filtration, Intermittent, Less than 6 Hours Per Day (ICD-10-PCS; principal; 2024-09-10)
DX: J96.01 Acute respiratory failure with hypoxia (principal); J15.69 Pneumonia due to other Gram-negative bacteria; I21.A1 Myocardial infarction type 2; N18.6 End stage renal disease; J15.9 Unspecified bacterial pneumonia; I42.2 Other hypertrophic cardiomyopathy; N17.9 Acute kidney failure, unspecified; I42.9 Cardiomyopathy, unspecified; I25.811 Atherosclerosis of native coronary artery of transplanted heart without angina pectoris; I13.2 Hypertensive heart and chronic kidney disease with heart failure and with stage 5 chronic kidney disease, or end stage renal disease; J98.11 Atelectasis; E11.22 Type 2 diabetes mellitus with diabetic chronic kidney disease; Z20.822 Contact with and (suspected) exposure to COVID-19; E03.9 Hypothyroidism, unspecified; I45.10 Unspecified right bundle-branch block; B19.20 Unspecified viral hepatitis C without hepatic coma; I50.9 Heart failure, unspecified; D63.1 Anemia in chronic kidney disease; E66.9 Obesity, unspecified; Z99.2 Dependence on renal dialysis; Z88.8 Allergy status to other drugs, medicaments and biological substances; Z79.899 Other long term (current) drug therapy; Z79.82 Long term (current) use of aspirin; Z86.73 Personal history of transient ischemic attack (TIA), and cerebral infarction without residual deficits; Z82.49 Family history of ischemic heart disease and other diseases of the circulatory system; I25.2 Old myocardial infarction; Z98.61 Coronary angioplasty status; Z68.24 Body mass index [BMI] 24.0-24.9, adult; Z79.84 Long term (current) use of oral hypoglycemic drugs
CPT/HCPCS: 36415; 71045; 71046; 71250; 80048; 80053; 80061; 80074; 81001; 82962; 83036; 83605; 83880; 84439; 84443; 84481; 84484; 85025; 85379; 85652; 86141; 87040; 87426; 87804; 90935; 93005; 93306; 93970; 94640; 99291; G0378; J1815; J2405; J2470